=== PATIENT | female | born 1980 | race Caucasian/White ===

== ENCOUNTER → 2017-11-09 16:02 | Outpatient (CLI) | payer OTHER, SELFPAY ==
--- NOTE | 2017-11-09 16:06 | BI_ITS ---
MAMMOGRAPHY - BILATERAL SCREENING REASON FOR EXAM: Female, 37 years old. Routine annual screening examination. PERTINENT HISTORY: Non-contributory. Past history of Hodgkin's lymphoma. TECHNIQUE: Digital bilateral breast addie (3D mammographic acquisition) in the CC and MLO projections. 2-D mediolateral oblique (MLO) and craniocaudad (CC) views of both breasts were obtained. CAD: Full Field Digital Mammography with Computer Added Detection was performed. COMPARISON: Comparison is made with prior examination dated May 22, 2015. FINDINGS: Breast Composition: The breasts are heterogeneously dense, which may obscure small masses. There are no dominant masses or suspicious calcifications. No other significant abnormalities are identified. There has been no significant change since the prior study. BI/SCREENING MAMM (CAD), BILAT IMPRESSION: Stable bilateral screening mammogram. Yearly follow-up mammogram recommended. (A) ASSESSMENT CATEGORY: BIRADS Category 1: Negative. A letter regarding these results will be sent to the patient by the facility within 30 days. Approximately 10% of breast cancers are not detected by mammography. A normal mammogram should not delay biopsy of a clinically suspicious abnormality. [id number] Electronically Signed: Neil Koenig MD at 9:18 EDT Tel [phone], Service support ,
== END ==
PROVIDERS: Visit Provider Obstetrics & Gynecology
DX: Z12.31 Encounter for screening mammogram for malignant neoplasm of breast (principal); Z85.71 Personal history of Hodgkin lymphoma
CPT/HCPCS: 77063; 77067

== ENCOUNTER → 2018-04-25 20:43 | Outpatient (CLI) | payer OTHER, SELFPAY ==
[2018-04-25 09:59] VITALS: BMI 25.0
[2018-04-30 10:03] LABS: HPV APTIMA, High Risk Negative (Negative)
--- OUTSIDE RECORDS SUMMARY | 2018-07-28 10:20 | XMS RPT_ITS ---
:1980 Author Organization OHIP Care Team Providers Name Role Phone Aziza Estrada Attending Unavailable Primay Care Physicia, No Referring Unavailable Aziza Estrada Attending Unavailable Primay Care Physicia, No Primary Care Unavailable Del Rey, Aziza Referring Unavailable Del Rey, Aziza Attending Unavailable Del Rey, Aziza Referring Unavailable Kornhaus, Norma Primary Care Unavailable Natalie, Aziza Attending Unavailable Kornhaus, Norma Referring Unavailable Natalie, Aziza Attending Unavailable Kornhaus, Norma Primary Care Unavailable Marcanthony, Jenelle Attending Unavailable Marcanthony, Jenelle Referring Unavailable Kornhaus, Norma Primary Care Unavailable Marcanthony, Jenelle Attending Unavailable Primay Care Physicia, No Primary Care Unavailable FELICIA MARC (REEL MAN) Referring Unavailable FELICIA MARC (REEL MAN) Attending Unavailable FELICIA MARC (REEL MAN) Referring Unavailable PROBLEMS PROBLEMS DATE TYPE CONDITION / CODE ATTENDING STATUS SOURCE 05/29/2018 Unknown N97.0 - Female Enderanthdanilo, Active [place] infertility [facility] associated with Hospital anovulation / Repository N97.0(ICD-10) 05/23/2018 Unknown N92.6 - Irregular Del Rey, Aziza Active [place] menstruation, [facility] unspecified / Hospital N92.6(ICD-10) Repository 05/23/2018 Unknown N97.9 - Female Natalie, Aziza Active [place] infertility, [facility] unspecified / Hospital N97.9(ICD-10) Repository 04/26/2018 Unknown Z12.4 - Encounter Natalie, Aziza Active [place] for screening for [facility] malignant Hospital neoplasm of Repository cervix / Z12.4(ICD-10) 11/09/2017 Unknown Z12.31 - Marcanthdanilo, Active Kathy Encounter for [facility] mammogram for Repository malignant neoplasm of breast / Z12.31(ICD-10) 08/10/2016 Active Personal history NA Active [facility] Hodgkin [facility] lymphoma / Repository Z85.71(ICD-10) PROCEDURES PROCEDURES No Procedure Records FoundRESULTS RESULTS FOLLICLE STIMULATING Collected: 05/29/2018 Status: F Source: [place] HORMONE 3:43 PM [facility] HOSP[facility] REPOSITORY TYPE CODE TESTS RESULT OUT OF RANGE REFERENCE UNITS LAB L3100.5125 mIU/mL Normal FSH 6.1 Result Comment: NORMAL REFERENCE RANGES FEMALE FOLLICULAR 2.3 - 12.6 mIU/mL MID-CYCLE PEAK 5.2 - 17.5 mIU/mL LUTEAL 1.7 - 12.9 mIU/mL POST-MENOPAUSAL ON MHT 5.9 - 72.8 mIU/mL NOT ON MHT 12.7 - 132.2 mlU/mL MALE 0.7 - 10.8 mIU/mL NEW TEST METHOD AND REFERENCE RANGES SEPTEMBER 28, 2011 Performed By: #### L3100.5125, L3100.5420, L3300.1750 #### [facility] [address] [place], [address] PROLACTIN Collected: 05/29/2018 Status: F Source: [place] 3:43 PM [facility] REPOSITORY TYPE CODE TESTS RESULT OUT OF RANGE REFERENCE UNITS LAB L3100.5420 ng/mL Normal PROLACTIN 8.6 Result Comment: NORMAL REFERENCE RANGES FEMALE NON- 2.2 - 30.3 ng/mL 8.1 - 347.6 ng/mL POST-MENOPAUSAL 0.7 - 31.5 ng/mL MALE 2.5 - 17.4 ng/mL NEW TEST METHOD AND REFERENCE RANGES SEPTEMBER 28, 2011 Performed By: #### L3100.5125, L3100.5420, L3300.1750 #### [facility] [address] [place], [place], [address] ESTRADIOL Collected: 05/29/2018 Status: F Source: [place] 3:43 PM [facility] REPOSITORY TYPE CODE TESTS RESULT OUT OF RANGE REFERENCE UNITS LAB L3300.1750 pg/mL Normal ESTRADIOL 33.3 Result Comment: NORMAL REFERENCE RANGES FEMALE FOLLICULAR 21.4 - 164.8 pg/mL MID-CYCLE PEAK 49.9 - 367.2 pg/mL LUTEAL 40.2 - 259.0 pg/mL POST-MENOPAUSAL ON MHT <11.0 - 462.1 pg/mL NOT ON MHT <11.0 - 58.3 pg/mL MALE <11.0 - 52.5 pg/mL NOTE: [facility] HAS CONFIRMED THE DRUG FULVETRANT (FASLODEX) MAY CAUSE FALSELY ELEVATED ESTRADIOL RESULTS WHEN USING THIS TEST METHOD. IF PATIENT IS TAKING FULVESTRANT AN ALTERNATIVE METHOD SHOULD BE USED TO DETERMINE ESTRADIOL CONCENTRATION. Performed By: #### L3100.5125, L3100.5420, L3300.1750 #### [facility] [address] [place], [address] TRIMMING CUTTER MACHINE OFFICE VISIT Observed: 05/23/2018 Status: F Source: [place] REPORT 10:10 AM [facility] REPOSITORY [facility] [address] [place] [address] OFFICE VISIT Date of Service: 05/23/18 MR#: [id number] Acct: [id number] Name: JAMES JASSO Rep #: [id number] : 1980 Provider: LOVE Estrada Age/Sex: 38/F [place] [facility] [place] Signed Intake Vital Signs05/23/18 Body Mass Index (BMI) 25.0 05/23/18 Height 5 ft 8 in 05/23/18 Weight: 163 lb 05/23/18 Body Mass Index (BMI) 24.7 05/23/18 Blood Pressure 118/70 Intake Visit Reasons: Discuss starting Clomid Spice Cleaner Required: No Is patient in pain?: No Allergies No Known Allergies Allergy (Verified 05/23/18 09:29) Medications Citalopram [Celexa] 20 mg PO DAILY 06/14/16 [History Confirmed 05/23/18] Post menopausal: No Patient : No : No PFSH Social History Smoking Status: Never smoker HPI Discuss starting Clomid: Details: JAMES JASSO is a 38 year old who presents for discussion of possible use of clomid. with her today. Had 21 day progesterone this month and did not show ovulation although she states home OPT was positive. She is now 3 days late for menses, home UPT last pm negative. States menses usually every 28 days. Actively trying to conceive X 10 months. Has 1 year old daughter. She is not anxious to try clomid yet. in family this month so more emotional stress for her right now. Pregancy History Elective abortions Hx Para 0 Spontaneous abortions ROS Const Constitutional: Reports system reviewed and no additional complaints, except as docu GI GI: Denies abdominal pain or change in bowel habits Exam Const General: cooperative, no acute distress Nutritional Appearance: well nourished Orientation: oriented x3 Eyes General: appearance normal, both eyes and all related structures Resp Effort AND Inspection: normal respiratory effort Assessment AND Plan Problems 1. Female infertility, unspecified N97.9 Plan Quant HCG today. IF negative, proceed with day 3 and 21 labs. If positive, start OB care. Continue vitamins Discussed use, benefits, risks and side effects of clomid and may consider 1-2 months. 15 min FTF counseling with patient. Orders Orders: Coding Level of Care Code Off vis,est,level 3 Diagnoses Female infertility, unspecified N97.9 05/23/18 1010 <Electronically signed by Aziza SHEA> Date Aziza Estrada NP-C Cosigner Signature: Date (if applicable) CC: HCG TITER QUANT., Collected: 05/23/2018 Status: F Source: [place] SERUM 9:55 AM [facility] REPOSITORY TYPE CODE TESTS RESULT OUT OF RANGE REFERENCE UNITS LAB L700.8000 <9 non-preg mIU/mL Normal HCG < 1 QUANT. Performed By: #### L700.8000 #### [facility] [address] [place], [place], [address] THYROID STIM HORMONE Collected: 05/11/2018 Status: F Source: [place] (TSH) 2:49 PM [facility] REPOSITORY TYPE CODE TESTS RESULT OUT OF RANGE REFERENCE UNITS LAB L501.9520 0.358-3.74 uIU/mL Normal TSH 1.77 Performed By: #### L501.9520 #### [facility] [address] [place], [address] PROGESTERONE LEVEL Collected: 05/11/2018 Status: F Source: [place] 2:49 PM [facility] REPOSITORY TYPE CODE TESTS RESULT OUT OF REFERENCE UNITS RANGE LAB L509.4001 See Comment ng/mL Progesterone Normal 0.54 Result Comment: Progesterone Reference Table: UNITS Female: Follicular 0.15 - 1.40 ng/mL Luteal 3.34 - 25.56 ng/mL Mid-luteal 4.44 - 28.03 ng/mL Postmenopausal 0.0 - 0.73 ng/mL : 1st Trimester 11.22 - 90.00 ng/mL 2nd Trimester 25.55 - 89.40 ng/mL 3rd Trimester 48.40 -422.50 ng/mL Performed By: #### L509.4001 #### [facility] [address] [place], [address] TRIMMING CUTTER MACHINE OFFICE VISIT Observed: 04/25/2018 Status: F Source: [place] REPORT 10:27 AM [facility] REPOSITORY [facility] [address] [place] [address] OFFICE VISIT Date of Service: 04/25/18 MR#: [id number] Acct: [id number] Name: JAMES JASSO Rep #: [id number] : 1980 Provider: LOVE Estrada Age/Sex: 37/F [place] [facility] [place]: Signed Intake Vital Signs04/25/18 Height 5 ft 8 in 04/25/18 Weight: 165 lb 04/25/18 Body Mass Index (BMI) 25.0 04/25/18 Blood Pressure 124/80 H Intake Visit Reasons: NURSING SERVICES MANAGER annual exam/ Infertility Discussion Spice Cleaner Required: No Is patient in pain?: No Allergies No Known Allergies Allergy (Verified 04/25/18 10:00) Medications Citalopram [Celexa] 20 mg PO DAILY 06/14/16 [History Confirmed 04/25/18] Is last menstrual period known: Yes Last Menstral Period: 04/21/18 Post menopausal: No Patient : No : No PFSH Social History Smoking Status: Never smoker Pregancy History Elective abortions Hx Para 0 Spontaneous abortions HPI NURSING SERVICES MANAGER annual exam/ Infertility Discussion: Details: JAMES JASSO is a 37 year old who presents for annual exam. Last PAP: >3 yr History of abnormal PAP: LEEP 10 yr ago No contraception X 10 months. Positive OPT testing. Menses every 28-30 days, last 5 days. Taking PNV. Female Reproductive History Last Menstral Period: 04/21/18 Questions: Metorrhagia: No, Sexually active: Yes, Dyspareunia: No, PCB: No ROS Const Constitutional: Denies fatigue, weight gain or weight loss Cardio Card: Denies chest pain Resp Resp: Denies cough or shortness of breath with activity GI GI: Denies abdominal pain, constipation, change in stools, vomiting or bloating : Reports as per HPI; denies urinary frequency, pelvic pain, urinary urgency, vaginal discharge, vaginal itching, urinary incontinence or difficulty urinating Exam Const General: cooperative, healthy appearing, no acute distress, well developed Orientation: alert, oriented to person, oriented to place HENMS Head: normal to inspection Neck Neck: normal visual inspection Thyroid: thyroid normal Lymphatic: no lymphadenopathy noted Chest Breast inspection: normal inspection of the breasts, normal inspection of the axillae Breast palpation: normal palpation of the breasts, normal palpation of the axillae, no axillary lymphadenopathy Resp Effort AND Inspection: normal respiratory effort GI Palpation: soft, nontender, no masses Rectal Exam: deferred External Female Exam: normal external appearance, normal appearance of the urethra Urethra: normal appearance of the urethra, normal palpation Speculum Exam - Vagina: normal appearance of the vagina, normal vaginal discharge Speculum Exam - Cervix: normal appearance of the cervix Bimanual Exam- Vagina AND Uterus: normal bimanual exam, uterine size normal, uterine shape normal, uterus non-tender Bimanual Exam- Adnexa, other: normal adnexae, no adnexal masses, adnexae non-tender, pelvic support normal Pelvic Support: normal Neuro General: alert, oriented x3 Psych Affect: normal affect Assessment AND Plan Problems 1. Encounter for gynecological examination with abnormal finding Z01.411 2. Anovulation N97.0 Plan Completed breast and pelvic exam Reviewed diet and exercise Pap thin prep pap with HPV Day 6 of current cycle. Will proceed with day 21 progesterone plus TSH and call results Discussed since has 1 year old daugher and <1 year of no contraception, may monitor ovulation 2-3 months before pursuing futher infertility management RTO 1 year, prn with problems Aziza Estrada REEL MAN Orders Orders: Coding Level of Care Code Off vis,new,prev 18-39yrs Diagnoses Encounter for gynecological examination with abnormal finding Z01.411 Gynecological examination findings: abnormal findings PRESENT Anovulation N97.0 04/25/18 1027 <Electronically signed by Aziza Estrada BOW MAKER CUSTOM-C> Date Aziza Estrada BOW MAKER CUSTOM-C Cosigner Signature: Date (if applicable) CC: PAP IG HPV APTIMA Collected: 04/25/2018 Status: F Source: [place] 16/18,45 10:00 AM [facility] REPOSITORY Order Comment: CYTOLOGY INFORMATION: - CLINICAL INFORMATION: ANNUAL - DATE LMP/MENOPAUSE: N/A - COLLECTION VIAL: Thin Prep Vial - NURSING SERVICES MANAGER SOURCE: CERVICAL - COLLECTION TECHNIQUE: BRUSH/SPATULA Specimen Comment: [id number] Specimen Comment: Source.............Cervix Specimen Comment: No. of containers..01 ThinPrep Vial TYPE CODE TESTS RESULT OUT OF REFERENCE UNITS RANGE LAB L7400.0800 . High DIAGN Comment Result Comment: EPITHELIAL CELL ABNORMALITY. ATYPICAL SQUAMOUS CELLS OF UNDETERMINED SIGNIFICANCE. LAB L7400.0900 . Normal ADEQ Comment Result Comment: Satisfactory for evaluation. Endocervical and/or squamous metaplastic cells (endocervical component) are present. LAB L7400.1400 . Normal PERFORM Comment Result Comment: Jenny Ambrosio, Horticulture Professor (ASCP) LAB L7400.1700 . Normal SIGN Comment Result Comment: Araceli Alegria MD, Pathologist LAB L7400.1720 . Normal Path prov. Comment ICD9 Result Comment: R87.610 LAB L7400.2575 . Normal TEST METHOD Comment Result Comment: This liquid based ThinPrep(R) pap test was screened with the use of an image guided system. LAB L7400.2600 . Normal . COMM LAB L7400.2700 . Normal PAPSMR Comment Result Comment: The Pap smear is a screening test designed to aid in the detection of premalignant and malignant conditions of the uterine cervix. It is not a diagnostic procedure and should not be used as the sole means of detecting cervical cancer. Both false-positive and false-negative reports do occur. LAB L7400.2760 Negative Normal HPV APTIMA, Negative HR Result Comment: This test detects fourteen high-risk HPV types (16/18/31/33/35/39/45/ 51/52/56/58/59/66/68) without differentiation. Performed at: WB - [facility] [address] [id number] [place]: Millicent Gonzalez MD, Phone: [phone] Performed at: =G - [facility] [address] [place] [id number] [place]: Millicent Gonzalez MD, Phone: [phone] Performed By: #### L7400.0280 #### [facility] (refer to report for specific site) refer to report for address and phone number SCREENING MAMM (CAD), Observed: 11/09/2017 Status: F Source: [place] BIL[place] 4:06 PM [facility] REPOSITORY [facility] Imaging Services [address] [place] [address] SCREENING MAMM (CAD), BILAT MR#: [id number] Acct: [id number] Name: JAMES JASSO Rep #: [id number] : 1980 F 37 From: Neil Koenig MD PCP: Care Physician, No Primary Status: [facility] Study: SCREENING MAMM (CAD), BILAT Date of Exam: 11/09/17 Exam# [id number] Ordering Dr: Jenelle Guillaume MD MAMMOGRAPHY - BILATERAL SCREENING REASON FOR EXAM: Female, 37 years old. Routine annual screening examination. PERTINENT HISTORY: Non-contributory. Past history of Hodgkin's lymphoma. TECHNIQUE: Digital bilateral breast addie (3D mammographic acquisition) in the CC and MLO projections. 2-D mediolateral oblique (MLO) and craniocaudad (CC) views of both breasts were obtained. CAD: Full Field Digital Mammography with Computer Added Detection was performed. COMPARISON: Comparison is made with prior examination dated May 22, 2015. FINDINGS: Breast Composition: The breasts are heterogeneously dense, which may obscure small masses. There are no dominant masses or suspicious calcifications. No other significant abnormalities are identified. There has been no significant change since the prior study. BI/SCREENING MAMM (CAD), BILAT IMPRESSION: Stable bilateral screening mammogram. Yearly follow-up mammogram recommended. (A) ASSESSMENT CATEGORY: BIRADS Category 1: Negative. A letter regarding these results will be sent to the patient by the facility within 30 days. Approximately 10% of breast cancers are not detected by mammography. A normal mammogram should not delay biopsy of a clinically suspicious abnormality. [id number] Electronically Signed: Neil Koenig MD at 9:18 EDT Tel [phone], Service support , CC: No Primary Care Physician; Jenelle Guillaume MD Pantograph Ii Engraver: Signed PROGRESS Observed: 10/29/2017 Status: COMPLETED Source: [place] 9:19 AM [facility] [place] REPOSITORY O ID: [id number] Author: Felicia Marc Service: (none) Author Type: Nurse Practitioner Type: Progress Notes Filed: 10/29/2017 9:36 AM Note Text: Chief Complaint Patient presents with: Established Patient HPI: James Jasso is a 37 year old female who presents here today for follow up lymphoma. Per Dr. Yu's previous note: H/o diagnosed with nodular sclerosing stage IIA Hodgkin lymphoma in 2005. She was treated with 4 cycles of ABVD followed by involved field radiation to a total dose of 30 cGy. Most recent follow up PET negative. ? No complaints. ? Appetite:fine Energy level:I'd say fine-I work and have the normal tiredness by the end of the week. Denies fevers. Resp:denies cough or sob Cardiac:denies chest pain/palpitations GI:denies abd pain, n/v, moving bowels regularly :denies dysuria/hematuria Extrem:denies pain Neuro:denies symptoms of neuropathy Skin:denies rashes/lesions Heme:denies bleeding ? The ROS is otherwise negative. Past medical history, appointments, medications, allergies reviewed. No changes. EXAM: BP 113/68 Pulse 70 Temp 37.1 ?C (98.7 ?F) (Oral) Wt 73.7 kg (162 lb 8 oz) BMI 25.45 kg/m? APPEARANCE Well appearing, alert, in no acute distress, well-hydrated, well nourished. HEART RRR with normal S1 and S2, no murmurs LUNG clear to auscultation LYMPH NODES No cervical lymphadenopathy, No supraclavicular lymphadenopathy and No axillary lymphadenopathy. ABDOMEN bowel sounds normoactive, no bruits, soft, non-tender, non-distended, without organomegaly or palpable masses EXTREMITIES No edema NEURO Awake, alert and oriented x 3, Normal gait and No involuntary motions. SKIN Skin color, texture, turgor normal, no suspicious rashes or lesions LABS: Component Latest Ref Rng AND Units 09/22/2017 WBC, Kathy 3.70 - 11.00 k/uL 8.85 RBC, [place] 3.90 - 5.20 m/uL 4.66 Hemoglobin, Kathy 11.5 - 15.5 g/dL 13.4 Hematocrit, Kathy 36.0 - 46.0 % 41.7 MCV, [place] 80.0 - 100.0 fL 89.5 MCH, [place] 26.0 - 34.0 pg 28.8 MCHC, [place] 30.5 - 36.0 g/dL 32.1 RDW, Kathy 11.5 - 15.0 % 13.8 Platelet Cnt, [place] 150 - 400 k/uL 231 MPV, Kathy 9.0 - 12.7 fL 10.0 Absol Gran Count 1.45 - 7.50 k/uL 5.98 Component Latest Ref Rng AND Units 09/22/2017 Protein, Total 6.3 - 8.0 g/dL 7.8 Albumin 3.9 - 4.9 g/dL 4.9 Calcium 8.5 - 10.2 mg/dL 9.7 Bilirubin, Total 0.2 - 1.3 mg/dL 0.6 Alkaline Phosphatase 32 - 117 U/L 53 AST 13 - 35 U/L 18 Glucose 74 - 99 mg/dL 91 BUN 7 - 21 mg/dL 12 Creatinine 0.58 - 0.96 mg/dL 0.65 Sodium 136 - 144 mmol/L 140 Potassium 3.7 - 5.1 mmol/L 3.7 Chloride 97 - 105 mmol/L 99 CO2 22 - 30 mmol/L 26 Anion Gap 9 - 18 mmol/L 15 ALT 7 - 38 U/L 11 eGFR- >60 eGFR-All Other Races . >60 Component Latest Ref Rng AND Units 08/10/2016 09/22/2017 TSH 0.400 - 5.500 uU/mL 1.220 2.800 ASSESSMENT/PLAN: 1. History of Hodgkin's lymphoma - ICD9: V10.72, ICD10: Z85.71 - No concerning findings on exam. - Pt. 12 years out from dx. - Pt. did not have her f/u dx mamm d/t being . - B/l dx mamm-having done today-ordered by NURSING SERVICES MANAGER. - Reviewed labs with pt. - Follow up in one year with CBC/CMP/TSH. - Pt. aware to call office with any questions/concerns. The patient indicates understanding of these issues and agrees with the plan. Felicia Marc APRN.CNP CNOVSP Observed: 10/29/2017 Status: COMPLETED Source: [place] 9:00 AM [facility] REPOSITORY Visit (SP) Office (JEFFREY) JAMES JASSO ([id number]) 1980 F Date Time Provider Department 10/29/17 9:00 AM FELICIA MARC (MIC) JEFFREY During your visit today, we recorded the following information about you: Temperature Pulse Blood pressure Weight 98.7 degrees 70/minute 113/68 73.7 kg Angela Chirinos LPN 10/29/2017 9:24 AM Signed Est patient. One year office visit. Discuss recent labs. Angela Marc APRN.CNP 10/29/2017 9:36 AM Signed Chief Complaint Patient presents with: Established Patient HPI: James Jasso is a 37 year old female who presents here today for follow up lymphoma. Per Dr. Yu's previous note: H/o diagnosed with nodular sclerosing stage IIA Hodgkin lymphoma in 2005. She was treated with 4 cycles of ABVD followed by involved field radiation to a total dose of 30 cGy. Most recent follow up PET negative. ? No complaints. ? Appetite:fine Energy level:I'd say fine-I work and have the normal tiredness by the end of the week. Denies fevers. Resp:denies cough or sob Cardiac:denies chest pain/palpitations GI:denies abd pain, n/v, moving bowels regularly :denies dysuria/hematuria Extrem:denies pain Neuro:denies symptoms of neuropathy Skin:denies rashes/lesions Heme:denies bleeding ? The ROS is otherwise negative. Past medical history, appointments, medications, allergies reviewed. No changes. EXAM: BP 113/68 Pulse 70 Temp 37.1 ?C (98.7 ?F) (Oral) Wt 73.7 kg (162 lb 8 oz) BMI 25.45 kg/m? APPEARANCE Well appearing, alert, in no acute distress, well- hydrated, well nourished. HEART RRR with normal S1 and S2, no murmurs LUNG clear to auscultation LYMPH NODES No cervical lymphadenopathy, No supraclavicular lymphadenopathy and No axillary lymphadenopathy. ABDOMEN bowel sounds normoactive, no bruits, soft, non-tender, non-distended, without organomegaly or palpable masses EXTREMITIES No edema NEURO Awake, alert and oriented x 3, Normal gait and No involuntary motions. SKIN Skin color, texture, turgor normal, no suspicious rashes or lesions LABS: Component Latest Ref Rng AND Units 09/22/2017 WBC, Kathy 3.70 - 11.00 k/uL 8.85 RBC, Kathy 3.90 - 5.20 m/uL 4.66 Hemoglobin, Kathy 11.5 - 15.5 g/dL 13.4 Hematocrit, Kathy 36.0 - 46.0 % 41.7 MCV, [place] 80.0 - 100.0 fL 89.5 MCH, Kathy 26.0 - 34.0 pg 28.8 MCHC, Kathy 30.5 - 36.0 g/dL 32.1 RDW, Kathy 11.5 - 15.0 % 13.8 Platelet Cnt, Kathy 150 - 400 k/uL 231 MPV, Kathy 9.0 - 12.7 fL 10.0 Absol Gran Count 1.45 - 7.50 k/uL 5.98 Component Latest Ref Rng AND Units 09/22/2017 Protein, Total 6.3 - 8.0 g/dL 7.8 Albumin 3.9 - 4.9 g/dL 4.9 Calcium 8.5 - 10.2 mg/dL 9.7 Bilirubin, Total 0.2 - 1.3 mg/dL 0.6 Alkaline Phosphatase 32 - 117 U/L 53 AST 13 - 35 U/L 18 Glucose 74 - 99 mg/dL 91 BUN 7 - 21 mg/dL 12 Creatinine 0.58 - 0.96 mg/dL 0.65 Sodium 136 - 144 mmol/L 140 Potassium 3.7 - 5.1 mmol/L 3.7 Chloride 97 - 105 mmol/L 99 CO2 22 - 30 mmol/L 26 Anion Gap 9 - 18 mmol/L 15 ALT 7 - 38 U/L 11 eGFR- >60 eGFR-All Other Races . >60 Component Latest Ref Rng AND Units 08/10/2016 09/22/2017 TSH 0.400 - 5.500 uU/mL 1.220 2.800 ASSESSMENT/PLAN: 1. History of Hodgkin's lymphoma - ICD9: V10.72, ICD10: Z85.71 - No concerning findings on exam. - Pt. 12 years out from dx. - Pt. did not have her f/u dx mamm d/t being . - B/l dx mamm-having done today-ordered by NURSING SERVICES MANAGER. - Reviewed labs with pt. - Follow up in one year with CBC/CMP/TSH. - Pt. aware to call office with any questions/concerns. The patient indicates understanding of these issues and agrees with the plan. Felicia Marc APRN.REEL MAN Referring Provider: FELICIA MARC ([facility]) [[id number]] Allergies As of Date: 10/29/2017 (No Known Allergies) Date Reviewed: 10/29/2017 Reviewed by: Felicia ([facility]) [place] - Fully Assessed Reason for Visit: Established Patient [175] Primary Visit Diagnosis:History of Hodgkin's lymphoma [Z85.71] Follow-up and Disposition History Recorded Prescriptions as of 10/29/2017 Sig: PROMETHAZINE 25 MG TABLET Take 25 mg by mouth as needed. CITALOPRAM 20 MG TABLET Take 1 tablet by mouth once d* VITAMIN,CALCIUM,MINE* Take 1 tablet by mouth once d* Problem List As Of Date 10/29/2017 Noted Resolved History of hodgkin's lymphoma [Z85.71] INVALID FOR*04/23/2016 More... More... More... Patient requested diagnostic testing [Z01.89] INVALID FOR*03/02/2016 More... More... More... History of hodgkin's lymphoma [Z85.71] INVALID FOR* Visit Notes: >> Angela Candis MORELOS WedOct 29, 2017 9:17 AM Status: Signed Est patient. One year office visit. Discuss recent labs. Angela Candis MROELOS Encounter Status:Closed by FELICIA MARC REEL MAN on 10/29/17 KATHY ABS GR + CBC Collected: 09/22/2017 Status: F Source: [place] 12:22 PM [facility] REPOSITORY TYPE CODE TESTS RESULT OUT OF REFERENCE UNITS RANGE LAB WWBC 3.70-11.00 k/uL [place] WBC 8.85 LAB WRBC 3.90-5.20 m/uL [place] RBC 4.66 LAB WHGB 11.5-15.5 g/dL [place] Hemoglobin 13.4 LAB WHCT 36.0-46.0 % Kathy Hematocrit 41.7 LAB WMCV 80.0-100.0 fL Kathy MCV 89.5 LAB WMCH 26.0-34.0 pg [place] MCH 28.8 LAB WMCHC 30.5-36.0 g/dL [place] MCHC 32.1 LAB WRDW 11.5-15.0 % Kathy RDW 13.8 LAB WPLT 150-400 k/uL [place] Platelet Cnt 231 LAB WMPV 9.0-12.7 fL [place] MPV 10.0 Result Comment: Test performed at: [facility], [address] [place] [address]. LAB ABGRAN 1.45-7.50 k/uL Absol Gran 5.98 Count COMP METABOLIC PANEL Collected: 09/22/2017 Status: F Source: EFFIE 12:22 PM [facility] REPOSITORY TYPE CODE TESTS RESULT OUT OF REFERENCE UNITS RANGE LAB TP 6.3-8.0 g/dL Protein, Total 7.8 LAB ALB 3.9-4.9 g/dL Albumin 4.9 LAB CA 8.5-10.2 mg/dL Calcium, Total 9.7 LAB TBIL 0.2-1.3 mg/dL Bilirubin, Total 0.6 LAB ALKP 32-117 U/L Alkaline Phosphatase 53 LAB AST 13-35 U/L AST 18 LAB GLU 74-99 mg/dL Glucose 91 Result Comment: The [place] Diabetes Association (ADA) provides guidance for cutoff values for fasting glucose and random glucose. The ADA defines fasting as no caloric intake for at least 8 hours. Fas ting plasma glucose results between 100 to 125 mg/dL indicate increased risk for diabetes (prediabetes). Fasting plasma glucose results greater than or equal to 126 mg/dL meet the criteria for diagnosis of diabetes. In the absence of unequivocal hyperglycemia, results should be confirmed by repeat testing. In a patient with classic symptoms of hyperglycemia or hyperglycemic crisis, random plasma glucose results greater than or equal to 200 mg/dL meet the criteria for diagnosis of diabetes. Reference: Standards of Medical Care in Diabetes 2016, [place] Diabetes Association. Diabetes Care. 2016.39(Suppl 1). LAB BUN 7-21 mg/dL BUN 12 LAB CRET 0.58-0.96 mg/dL Creatinine 0.65 LAB NA 136-144 mmol/L Sodium 140 LAB K 3.7-5.1 mmol/L Potassium 3.7 LAB CL 97-105 mmol/L Chloride 99 LAB CO2 22-30 mmol/L CO2 26 LAB AGAP 9-18 mmol/L Anion Gap 15 LAB ALT 7-38 U/L ALT 11 LAB GFRAA eGFR- Amer. >60 LAB GFRNAA . eGFR-All Other Races >60 Result Comment: eGFR (Estimated GFR) Units of measure: mL/min/1.73 meters squared eGFR is derived from the reexpressed MDRD Study equation using the following parameters: serum creatinine, age, gender and race. The creatinine assay has been calibrated to be traceable to IDMS. An eGFR <60 mL/min/1.73m2 for >3 months is consistent with chronic kidney disease. Refer to KDOQI guidelines for clinical interpretation. In patients with unstable renal function, e.g. those with acute kidney injury, the eGFR may not accurately reflect actual GFR. Performed By: #### CMP, TSH #### [facility] [address] [address] TSH Collected: 09/22/2017 Status: F Source: EFFIE 12:22 PM [facility] REPOSITORY TYPE CODE TESTS RESULT OUT OF RANGE REFERENCE UNITS LAB TSH 0.400-5.500 uU/mL TSH 2.800 Result Comment: If the patient is , TSH reference range varies by gestational period: First Trimester 0.100-2.500 uU/mL Second Trimester 0.200-3.000 uU/mL Third Trimester 0.300-3.000 uU/mL References: 1. Marcos, Itz M, Rich EK, et al. Management of Thyroid Dysfunction during and : An Endocrine Society Clinical Practice Guideline. J Clin Endocrinol Metab, 2012:97:5299-4136. 2. Jorge CHILD. Overview of thyroid disease in . UpToDate. 2016. Accessed on October 25, 2015. Performed By: #### CMP, TSH #### [facility] [address] [address] ALLERGIES ALLERGIES DATE TYPE / CODE NAME / CODE REACTION SEVERITY SOURCE 05/23/2018 Drug No Known Unknown [facility] Allergy/416 Allergies/E58977 [facility] 623332(SNOM 0388(RXNORM) Repository ED CT) Drug NO KNOWN [facility] Class/77113 ALLERGIES [facility] 1003(SNOMED Repository CT) ENCOUNTERS ENCOUNTERS ADMIT/DISCHARGE ACCOUNT ADMITTING ENCOUNTER LOCATION SOURCE NUMBER CLASS 05/29/2018 [id number] [facility] ing:LAB Repository 05/23/2018 [id number] Ambulatory [facility] ing:PAVLAB Repository 05/23/2018/05/23/19 [id number] Ambulatory BMSBuilding:B [place] [facility] Repository 05/11/2018 [id number] Ambulatory [facility] ing:LAB Repository 04/25/2018 [id number] Ambulatory [facility] ing:LABSPEC Repository 04/25/2018/04/25/20 [id number] Ambulatory BMSBuilding:B [place] 18 [facility] Repository 11/09/2017 [id number] [facility] ing:OPBI Repository 10/29/2017/11/02/19 [id number] Ambulatory [address] Repository 09/22/2017/09/24/19 [id number] Ambulatory [address] Repository PAYERS PAYERS ENCOUNTER GUARANTOR PAYER SUBSCRIBER SOURCE 05/29/2018 JAMES R Primary NOT GIVENUNK [place] [id number] [place] Insurance:SELF PAY [address] [address]Bgq: Number: Effective Repository Date:2018-05-29 () 05/23/2018 JAMES R Primary MIRACLE R [place] [id number] Insurance:AULTCAREPol MULLETDOB: [facility] PRIVATE icy Number: [id number] [id number] [place]ository [place] [address]Idr: e Date:2988-47-25KA [address] [place] [address] () [phone]: 05/23/2018 Secondary NOT GIVENUNK [place] Insurance:SELF PAY [facility] Number: Effective Repository Date:2018-05-23 05/23/2018 JAMES R Primary MIRACLE R [place] [id number] [place] Insurance:AULTCAREPol MULLETDOB: [address] ic Number: [id number] [facility] [address]Ssi: [id number] Repository e Date:1657-86-07SJ () [address] [place] [phone]: 05/23/2018 Secondary NOT GIVENUNK [place] Insurance:SELF PAY [facility] Number: Effective Repository Date:2018-05-23 05/11/2018 JAMES R Primary MIRACLE R [place] [id number] [place] Insurance:AULTCAREPol MULLETDOB: [address] icy Number: [id number] Fe Indian Hospital [address]Iao: [id number] Repository e Date:8426-21-44UA () [address] [place] [phone]: 05/11/2018 Secondary NOT GIVENUNK [place] Insurance:SELF PAY [facility] Number: Effective Repository Date:2018-05-11 04/25/2018 JAMES R Primary MIRACLE R [place] [id number] [place] Insurance:AULTCAREPol MULLETDOB: [address], icy Number: [id number] Fe Indian Hospital [address]Brz: [id number] Repository e Date:9149-55-62OD () [address] [place] [address]PJ: 04/25/2018 Secondary NOT GIVENUNK [place] Insurance:SELF PAY [facility] Number: Effective Repository Date:2018-04-25 04/25/2018 JAMES Primary MIRACLE R Kathy [id number] Insurance:AULTCAREPol MULLETDOB: [address] icy Number: [id number], [id number] [place] [address]Wtv: e Date:4375-45-39AT [address] [place] [address] () [phone]: 04/25/2018 Secondary NOT GIVENUNK [place] Insurance:SELF PAY [facility] Number: Effective Repository Date:2018-02-15 11/09/2017 James Primary MIRACLE R [place] [id number] Insurance:AULTCAREPol MULLETDOB: [address] icy Number: [id number], [id number] [place]ository [place] [address]Uoa: e Date:0219-01-42GQ [address] [place] [address] () [phone]: 11/09/2017 Secondary NOT GIVENUNK [place] Insurance:SELF PAY [facility] Number: Effective Repository Date:2017-09-23
== END ==
PROVIDERS: Referring Provider Nurse Practitioner Women's Health; Visit Provider Nurse Practitioner Women's Health
DX: Z12.4 Encounter for screening for malignant neoplasm of cervix (principal)
CPT/HCPCS: 87624; 88175; G0145

== ENCOUNTER → 2018-05-11 14:44 | Outpatient (CLI) | payer OTHER, SELFPAY ==
[2018-04-25 09:59] VITALS: BMI 25.0
[2018-05-11 15:39] LABS: Progesterone Level 0.54 ng/mL (See Comment); Thyroid Stim Hormone (TSH) 1.77 uIU/mL (0.358-3.74)
== END ==
PROVIDERS: Family Provider Family Medicine; PCP Family Medicine; Referring Provider Nurse Practitioner Women's Health; Visit Provider Nurse Practitioner Women's Health
DX: N97.0 Female infertility associated with anovulation (principal)
CPT/HCPCS: 36415; 84144; 84443

== ENCOUNTER → 2018-05-23 09:48 | Outpatient (CLI) | payer OTHER, SELFPAY ==
[2018-05-23 09:30] VITALS: BMI 25.0
[2018-05-23 10:38] LABS: hCG Titer Quant., Serum < 1 mIU/mL (<9 non-preg)
== END ==
PROVIDERS: Family Provider Family Medicine; PCP Family Medicine; Visit Provider Nurse Practitioner Women's Health
DX: N92.6 Irregular menstruation, unspecified (principal)
CPT/HCPCS: 36415; 84702

== ENCOUNTER → 2018-05-29 15:33 | Outpatient (CLI) | payer SELFPAY ==
[2018-05-23 09:30] VITALS: BMI 25.0
[2018-05-29 16:11] LABS: Estradiol 33.3 pg/mL; Follicle Stimulating Hormone 6.1 mIU/mL; Prolactin 8.6 ng/mL
--- OUTSIDE RECORDS SUMMARY | 2018-08-01 12:00 | XMS RPT_ITS ---
:1980 Author Organization OHIP Care Team Providers Name Role Phone FELICIA MARC (CYBER POLICY AND STRATEGY PLANNER) Referring Unavailable FELICIA MARC (MIC) Attending Unavailable FELICIA MARC (MIC) Referring Unavailable Aziza Estrada Attending Unavailable Primay Care Physicia, No Referring Unavailable [place], Aziza Attending Unavailable Primay Care Physicia, No Primary Care Unavailable [place], Aziza Referring Unavailable [place], Aziza Attending Unavailable Natalie, Aziza Referring Unavailable Kornhaus, Norma Primary Care Unavailable Natalie, Aziza Attending Unavailable Kornhaus, Norma Referring Unavailable [place], Aziza Attending Unavailable Kornhaus, Norma Primary Care Unavailable Marcanthony, Jenelle Attending Unavailable Marcanthony, Jenelle Referring Unavailable Kornhaus, Norma Primary Care Unavailable Marcanthony, Jenelle Attending Unavailable Primay Care Physicia, No Primary Care Unavailable PROBLEMS PROBLEMS DATE TYPE CONDITION / CODE ATTENDING STATUS SOURCE 05/29/2018 Unknown 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.0 - 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, Active Kathy infertility [facility] associated with Hospital anovulation / Repository N97.0(ICD-10) 05/23/2018 Unknown N92.6 - Irregular [place], Aziza Active [place] menstruation, [facility] unspecified / Hospital N92.6(ICD-10) Repository 05/23/2018 Unknown N97.9 - Female Natalie, Aziza Active Kathy infertility, Community unspecified / Hospital N97.9(ICD-10) Repository 04/26/2018 Unknown Z12.4 - Encounter Natalie, Aziza Active [place] for [facility] 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 lymphoma / Repository Z85.71(ICD-10) PROCEDURES PROCEDURES No Procedure Records FoundRESULTS RESULTS FOLLICLE STIMULATING Collected: 05/29/2018 Status: F Source: KATHY HORMONE 3:43 PM [facility] REPOSITORY TYPE CODE TESTS RESULT [...] Performed By: #### L3100.5125, L3100.5420, L3300.1750 #### [facility] [address] [place], [address] PROLACTIN Collected: 05/29/2018 Status: F Source: L[place] 3:43 PM [facility] REPOSITORY TYPE CODE TESTS RESULT OUT OF RANGE REFERENCE UNITS LAB L3100.5420 ng/mL Normal PROLACTIN 8.6 Result Comment: NORMAL REFERENCE RANGES FEMALE NON- 2.2 - 30.3 ng/mL 8.1 - 347.6 ng/mL POST-MENOPAUSAL 0.7 - 31.5 ng/mL MALE 2.5 - 17.4 ng/mL NEW TEST METHOD AND REFERENCE RANGES SEPTEMBER 28, 2011 Performed By: #### L3100.5125, L3100.5420, L3300.1750 #### [facility] [address] [place], [place], [address] ESTRADIOL Collected: 05/29/2018 Status: F Source: K[place] 3:43 PM [facility] REPOSITORY TYPE CODE TESTS RESULT OUT OF [...] Performed By: #### L3100.5125, L3100.5420, L3300.1750 #### [facility] [address] [place], [address] CISCO ENGINEER OFFICE VISIT Observed: 05/23/2018 Status: F Source: LATT[place] REPORT 10:10 AM [facility] REPOSITORY [facility] [address] [place] [address] OFFICE VISIT Date of Service: 05/23/18 MR#: [id number] Acct: [id number] Name: JAMES JASSO Rep #: [id number] : 1980 Provider: LOVE Estrada Age/Sex: 38/F Location: [facility] Status: Signed Intake Vital Signs05/23/18 Body Mass Index (BMI) 25.0 05/23/18 Height 5 ft 8 in 05/23/18 Weight: 163 lb 05/23/18 Body Mass Index (BMI) 24.7 05/23/18 Blood Pressure 118/70 Intake Visit Reasons: Discuss starting Clomid Lehr Operator Required: No Is patient in pain?: No [...] TITER QUANT., Collected: 05/23/2018 Status: F Source: LATT[place] SERUM 9:55 AM [facility] REPOSITORY TYPE CODE TESTS RESULT OUT OF RANGE REFERENCE UNITS LAB L700.8000 <9 non-preg mIU/mL Normal HCG < 1 QUANT. Performed By: #### L700.8000 #### [facility] [address] [facility] [place], [place], [address] THYROID STIM HORMONE Collected: 05/11/2018 Status: F Source: KATHY (TSH) 2:49 PM [facility] REPOSITORY TYPE CODE TESTS RESULT OUT OF RANGE REFERENCE UNITS LAB L501.9520 0.358-3.74 uIU/mL Normal TSH 1.77 Performed By: #### L501.9520 #### [facility] [address] [facility] [place], [address] PROGESTERONE LEVEL Collected: 05/11/2018 Status: F Source: K[place] 2:49 PM [facility] REPOSITORY TYPE CODE TESTS RESULT OUT OF [...] -422.50 ng/mL Performed By: #### L509.4001 #### [facility] [address] [place], [address] CISCO ENGINEER OFFICE VISIT Observed: 04/25/2018 Status: F Source: LATT[place] REPORT 10:27 AM [facility] REPOSITORY [facility] [address] [place] [address] OFFICE VISIT Date of Service: 04/25/18 MR#: [id number] Acct: [id number] Name: JAMES JASSO Rep #: [id number] : 1980 Provider: LOVE Estrada Age/Sex: 37/F Location: [facility] Status: Signed Intake Vital Signs04/25/18 Height 5 ft 8 in 04/25/18 Weight: 165 lb 04/25/18 Body Mass Index (BMI) 25.0 04/25/18 Blood Pressure 124/80 H Intake Visit Reasons: SURVEYOR CHAIN HELPER annual exam/ Infertility Discussion Lehr Operator Required: No Is patient in pain?: No Allergies No Known Allergies Allergy (Verified 04/25/18 10:00) Medications Citalopram [Celexa] 20 mg PO DAILY 06/14/16 [History Confirmed 04/25/18] Is last menstrual period known: Yes Last Menstral Period: 04/21/18 Post menopausal: No Patient : No : No PFSH Social History Smoking Status: Never smoker Pregancy History Elective abortions Hx Para 0 Spontaneous abortions HPI SURVEYOR CHAIN HELPER annual exam/ Infertility Discussion: Details: JAMES JASSO [...] alert, oriented to person, oriented to place HENNH Head: normal to inspection Neck Neck: normal [...] 1 year, prn with problems Aziza Estrada CYBER POLICY AND STRATEGY PLANNER Orders Orders: Coding Level of Care Code Off vis,new,prev 18-39yrs Diagnoses Encounter for gynecological examination with abnormal finding Z01.411 Gynecological examination findings: abnormal findings PRESENT Anovulation N97.0 04/25/18 1027 <Electronically signed by Aziza Estrada SENIOR TECHNICAL TRAINER-C> Date Aziza Estrada SENIOR TECHNICAL TRAINER-C Cosigner Signature: Date (if applicable) CC: PAP IG HPV APTIMA Collected: 04/25/2018 Status: F Source: KATHY 16/18,45 10:00 AM [facility] REPOSITORY Order Comment: CYTOLOGY INFORMATION: - CLINICAL INFORMATION: ANNUAL - DATE LMP/MENOPAUSE: N/A - COLLECTION VIAL: Thin Prep Vial - SURVEYOR CHAIN HELPER SOURCE: CERVICAL - COLLECTION TECHNIQUE: BRUSH/SPATULA Specimen Comment: [id number] Specimen Comment: Source.............Cervix Specimen Comment: No. of [...] Normal PERFORM Comment Result Comment: Jenny Ambrosio, Automotive Painter Helper (ASCP) LAB L7400.1700 . Normal SIGN Comment [...] without differentiation. Performed at: WB - [facility] [address] [id number] Slitter Processed Film: Millicent Gonzalez MD, Phone: [phone] Performed at: =G - [facility] [address] [place] [address] Slitter Processed Film: Millicent Gonzalez MD, Phone: [phone] Performed By: #### L7400.0280 #### [facility] (refer to report for specific site) refer to report for address and phone number SCREENING MAMM (CAD), Observed: 11/09/2017 Status: F Source: LATTIMORE BILAT 4:06 PM [facility] REPOSITORY [facility] Imaging Services [address] [place] [address] SCREENING MAMM (CAD), BILAT MR#: [id number] Acct: [id number] Name: JAMES JASSO Rep #: [id number] : 1980 F 37 From: Neil Koenig MD PCP: Care Physician, No Primary Status: [facility] Study: SCREENING MAMM (CAD), BILAT Date of Exam: 11/09/17 Exam# [id number] Ordering Dr: Jenelle Guillaume MD MAMMOGRAPHY - [...] delay biopsy of a clinically suspicious abnormality. AZ3232 Electronically Signed: Neil Koenig MD at 9:18 EDT Tel [phone], Service support , CC: No Primary Care Physician; Jenelle Guillaume MD Pay Station Collector: Signed PROGRESS Observed: 10/29/2017 Status: COMPLETED Source: NAVARRE 9:19 AM [facility] REPOSITORY O ID: [id number] Author: Felicia Marc Service: (none) Author Type: [...] [place] 3.70 - 11.00 k/uL 8.85 RBC, [place] 3.90 - 5.20 m/uL 4.66 Hemoglobin, [place] 11.5 - 15.5 g/dL 13.4 Hematocrit, Kathy 36.0 - 46.0 % 41.7 MCV, [place] 80.0 - 100.0 fL 89.5 MCH, [place] 26.0 - 34.0 pg 28.8 MCHC, [place] 30.5 - 36.0 g/dL 32.1 RDW, Kathy 11.5 - 15.0 % 13.8 Platelet Cnt, [place] 150 - 400 k/uL 231 MPV, Kathy [...] - B/l dx mamm-having done today-ordered by SURVEYOR CHAIN HELPER. - Reviewed labs with pt. - Follow up in one year with CBC/CMP/TSH. - Pt. aware to call office with any questions/concerns. The patient indicates understanding of these issues and agrees with the plan. Felicia Marc APRN.CNP CNOVSP Observed: 10/29/2017 Status: COMPLETED Source: NAVARRE 9:00 AM [facility] REPOSITORY Visit (SP) Office (JEFFREY) JAMES JASSO ([id number]) 1980 F Date Time Provider Department 10/29/17 [...] [place] 36.0 - 46.0 % 41.7 MCV, [place] 80.0 - 100.0 fL 89.5 MCH, Kathy [...] - B/l dx mamm-having done today-ordered by SURVEYOR CHAIN HELPER. - Reviewed labs with pt. - Follow up in one year with CBC/CMP/TSH. - Pt. aware to call office with any questions/concerns. The patient indicates understanding of these issues and agrees with the plan. Felicia Marc APRN.CYBER POLICY AND STRATEGY PLANNER Referring Provider: FELICIA MARC ([facility]) [[id number]] Allergies As of Date: 10/29/2017 (No Known Allergies) Date Reviewed: 10/29/2017 Reviewed by: Felicia ([facility]) Monico - Fully Assessed Reason for Visit: [...] office visit. Discuss recent labs. Angela Candis MORELOS Encounter Status:Closed by FELICIA MARC CYBER POLICY AND STRATEGY PLANNER on 10/29/17 K[place]Y ABS GR + CBC Collected: 09/22/2017 Status: F Source: NAVARRE 12:22 PM [facility] REPOSITORY TYPE CODE TESTS RESULT OUT OF REFERENCE UNITS RANGE LAB WWBC 3.70-11.00 k/uL Kathy WBC 8.85 LAB WRBC 3.90-5.20 m/uL [place] RBC 4.66 LAB WHGB 11.5-15.5 g/dL Kathy Hemoglobin 13.4 LAB WHCT 36.0-46.0 % Kathy Hematocrit 41.7 LAB WMCV 80.0-100.0 fL Kathy MCV 89.5 LAB WMCH 26.0-34.0 pg [place] MCH 28.8 LAB WMCHC 30.5-36.0 g/dL Kathy MCHC 32.1 LAB WRDW 11.5-15.0 % Kathy RDW 13.8 LAB WPLT 150-400 k/uL Kathy Platelet Cnt 231 LAB WMPV 9.0-12.7 fL Kathy MPV 10.0 Result Comment: Test performed at: [facility], [address] [place] [address]. LAB ABGRAN 1.45-7.50 k/uL Absol Gran 5.98 Count COMP METABOLIC PANEL Collected: 09/22/2017 Status: F Source: NAVARRE 12:22 PM [facility] REPOSITORY TYPE CODE TESTS RESULT OUT OF REFERENCE UNITS RANGE LAB TP 6.3-8.0 g/dL Protein, Total 7.8 LAB ALB 3.9-4.9 g/dL Albumin 4.9 LAB CA 8.5-10.2 mg/dL Calcium, Total 9.7 LAB TBIL 0.2-1.3 mg/dL Bilirubin, Total 0.6 LAB ALKP 32-117 U/L Alkaline Phosphatase 53 LAB AST 13-35 U/L AST 18 LAB GLU 74-99 mg/dL Glucose 91 Result Comment: The [place] Diabetes Association (ADA) provides guidance for cutoff [...] Standards of Medical Care in Diabetes 2016, [place] Diabetes Association. Diabetes Care. 2016.39(Suppl 1). LAB [...] GFR. Performed By: #### CMP, TSH #### [facility] [address] [address] TSH Collected: 09/22/2017 Status: F Source: NAVARRE 12:22 PM [facility] REPOSITORY TYPE [...] Clinical Practice Guideline. J Clin Endocrinol Metab, 2012:97:1479-1831. 2. Jorge CHILD. Overview of thyroid disease in . UpToDate. 2016. Accessed on October 25, 2015. Performed By: #### CMP, TSH #### [facility] [address] [address] ALLERGIES ALLERGIES DATE TYPE / CODE NAME / CODE REACTION SEVERITY SOURCE 05/23/2018 Drug No Known Unknown [facility] Allergy/416 Allergies/T77099 [facility] 235007(SNOM 0388(RXNORM) Repository ED CT) Drug NO KNOWN [facility] Class/[address] [facility] 1003(SNOMED Repository CT) ENCOUNTERS ENCOUNTERS ADMIT/DISCHARGE ACCOUNT ADMITTING ENCOUNTER LOCATION SOURCE NUMBER CLASS 05/29/2018 [id number] [facility] ing:LAB Repository 05/23/2018 [id number] Ambulatory [facility] ing:PAVLAB Repository 05/23/2018/05/23/19 [id number] Ambulatory BMSBuilding:B Kathy 19 MS.[facility] Repository 05/11/2018 [id number] Ambulatory [facility] ing:LAB Repository 04/25/2018 [id number] Ambulatory [facility] ing:LABSPEC Repository 04/25/2018/04/25/20 [id number] Ambulatory BMSBuilding:B [place] 18 MS.[facility] Repository 11/09/2017 [id number] [facility] ing:OPBI Repository 10/29/2017/11/02/19 [id number] Ambulatory [address] Repository 09/22/2017/09/24/19 [id number] Ambulatory [address] Repository PAYERS PAYERS ENCOUNTER GUARANTOR PAYER SUBSCRIBER SOURCE 05/29/2018 JAMES R Primary NOT GIVENUNK [place] [id number] [place] Insurance:SELF PAY [address] [address]Psx: Number: Effective Repository Date:2018-05-29 () 05/23/2018 JAMES R Primary MIRACLE R [place] [id number] Insurance:AULTCAREPol MULLETDOB: [facility] PRIVATE icy Number: [id number] [id number] Repository [place] [address]Kzk: e Date:5078-13-70LA [address] [place] [address] () [phone]: 05/23/2018 Secondary NOT GIVENUNK [place] Insurance:SELF PAY [facility] Number: Effective Repository Date:2018-05-23 05/23/2018 JAMES R Primary MIRACLE R [place] [id number] [place] Insurance:AULTCAREPol MULLETDOB: [address] ic Number: [id number] [address]Dir: [id number] Repository e Date:8845-54-68NR () [address] [place] [phone]: 05/23/2018 Secondary NOT GIVENUNK [place] Insurance:SELF PAY [facility] Number: Effective Repository Date:2018-05-23 05/11/2018 JAMES R Primary MIRACLE R [place] [id number] [place] Insurance:AULTCAREPol MULLETDOB: [address] icy Number: [id number] [address]Lzc: [id number] Repository e Date:2032-84-76GP () [address] [place] [phone]: 05/11/2018 Secondary NOT GIVENUNK [place] Insurance:SELF PAY [facility] Number: Effective Repository Date:2018-05-11 04/25/2018 JAMES R Primary MIRACLE R [place] [id number] [place] Insurance:AULTCAREPol MULLETDOB: [address], icy Number: [id number] Santa Fe Medical Center [address]Gxk: [id number] Repository e Date:8496-95-22AG () [address] [place] [phone]: 04/25/2018 Secondary NOT GIVENUNK [place] Insurance:SELF PAY [facility] Number: Effective Repository Date:2018-04-25 04/25/2018 JAMES Primary MIRACLE R [place] [id number] Insurance:AULTCAREPol MULLETDOB: [address] icy Number: [id number], [id number] [address]Vmi: e Date:9605-95-11MN [address] [place] [address] () [phone]: 04/25/2018 Secondary NOT GIVENUNK [place] Insurance:SELF PAY [facility] Number: Effective Repository Date:2018-02-15 11/09/2017 James Primary MIRACLE R [place] [id number] Insurance:AULTCAREPol MULLETDOB: [address] icy Number: [id number], [id number] [place]ository [place] [address]Bqh: e Date:8832-27-80UA [address] [place] [address] () [phone]: 11/09/2017 Secondary NOT GIVENUNK [place] Insurance:SELF PAY [facility] Number: Effective Repository Date:2017-09-23
== END ==
PROVIDERS: Nurse Practitioner Women's Health; Family Provider Family Medicine; PCP Family Medicine; Referring Provider Obstetrics & Gynecology; Visit Provider Obstetrics & Gynecology
DX: N97.0 Female infertility associated with anovulation (principal)
CPT/HCPCS: 36415; 82670; 83001; 84146

== ENCOUNTER → 2018-06-16 09:24 | Outpatient (CLI) | payer OTHER, SELFPAY ==
[2018-05-23 09:30] VITALS: BMI 25.0
[2018-06-16 11:39] LABS: Progesterone Level 8.23 ng/mL (See Comment)
== END ==
PROVIDERS: Family Provider Family Medicine; PCP Family Medicine; Referring Provider Nurse Practitioner Women's Health; Visit Provider Nurse Practitioner Women's Health
DX: N97.0 Female infertility associated with anovulation (principal)
CPT/HCPCS: 36415; 84144

== ENCOUNTER → 2018-08-22 17:10 | Outpatient (CLI) | payer OTHER, SELFPAY ==
[2018-08-22 13:45] VITALS: BMI 25.0
[2018-08-22 22:35] LABS: Chlamydia Trachomatis by PCR Negative (Negative); Neisserai gonorrhoeae by PCR Negative (Negative); Probe Check PASS; Sample Adequacy Control PASS; Specimen Processing Control PASS
== END ==
PROVIDERS: Family Provider Family Medicine; PCP Family Medicine; Visit Provider Obstetrics & Gynecology
DX: O09.90 Supervision of high risk pregnancy, unspecified, unspecified trimester (principal); Z3A.00 Weeks of gestation of pregnancy not specified
CPT/HCPCS: 87086; 87088; 87491; 87591

== ENCOUNTER → 2018-08-23 07:42 | Outpatient (CLI) | payer OTHER, SELFPAY ==
[2018-08-22 13:45] VITALS: BMI 25.0
== END ==
PROVIDERS: Family Provider Family Medicine; PCP Family Medicine; Referring Provider Obstetrics & Gynecology; Visit Provider Obstetrics & Gynecology
DX: O09.90 Supervision of high risk pregnancy, unspecified, unspecified trimester (principal)

== ENCOUNTER → 2018-09-19 13:13 | Outpatient (CLI) | payer OTHER, SELFPAY ==
[2018-09-19 13:04] VITALS: BMI 25.0
[2018-09-19 13:46] LABS: Basophil% 0.2 % (0-1); Eosinophils% 0.7 % (0-5); Hematocrit 35.3 % (37-47); Hemoglobin 11.7 g/dl (12.0-15.0); Lymphocyte % 24.6 % (19-41); Mean Corp Hgb Conc 33.1 g/gl (32-36); Mean Corpuscular Hgb 28.7 pg (27.0-32.0); Mean Corpuscular Volume 86.7 fL (81-99); Mean Platelet Vol. 9.4 fl (6.2-12.0); Monocyte% 6.1 % (0-10); Neutrophil % 68.2 % (47-70); Platelet Count 205 K/mm3 (150-450); RBC Distribution Width CV 14.5 % (11.6-14.6); RBC Distribution Width SD 46.1 fl (35.1-43.9); Red Blood Count 4.07 M/mm3 (4.2-5.4); White Blood Count 8.1 K/mm3 (4.4-11.0)
[2018-09-19 13:47] LABS: Absolute Lymphocyte Count 1.99 X10^3/ul (0.83-4.51); Absolute Neutrophil Count 5.5 X10^3/uL (2.0-7.7); Basophil# 0.02 X10^3/uL; Eosinophil# 0.06 X10^3/uL; Lymphocyte # 1.99 X10^3/ul (4.0); Monocyte# 0.49 X10^3/uL; Neutrophil # 5.51 X10^3/uL (2.7-7.7); POSITIVE COUNT NO; POSITIVE DIFFERENTIAL NO; POSITIVE MORPHOLOGY NO
[2018-09-19 15:04] LABS: HIV - WCH Non-Reactive (Nonreactive); Rubella IgG 80.8 IU/mL
[2018-09-20 09:39] LABS: HEPATITIS B SURFACE AG Negative (Negative)
[2018-09-23 03:28] LABS: Rapid Plasmin Reagin (RPR) NONREACTIVE (NONREACTIVE)
== END ==
PROVIDERS: Family Provider Family Medicine; PCP Family Medicine; Visit Provider Obstetrics & Gynecology
DX: O09.90 Supervision of high risk pregnancy, unspecified, unspecified trimester (principal); Z3A.00 Weeks of gestation of pregnancy not specified
CPT/HCPCS: 36415; 85025; 86592; 86703; 86762; 86850; 86900; 87340

== ENCOUNTER → 2019-01-12 16:30 | Outpatient (CLI) | payer OTHER, SELFPAY ==
[2019-01-12 16:27] VITALS: BMI 25.0
[2019-01-12 17:30] LABS: Absolute Lymphocyte Count 2.37 X10^3/uL (0.83-4.51); Absolute Neutrophil Count 6.8 X10^3/uL (2.0-7.7); Basophil# 0.08 X10^3/uL; Basophil% 0.8 % (0-1); Eosinophil# 0.12 X10^3/uL; Eosinophils% 1.2 % (0-5); Hematocrit 34.4 % (37-47); Hemoglobin 11.1 g/dL (12.0-15.0); Lymphocyte # 2.37 X10^3/ul (4.0); Lymphocyte % 23.1 % (19-41); Mean Corp Hgb Conc 32.3 g/dL (32-36); Mean Corpuscular Hgb 29.6 pg (27.0-32.0); Mean Corpuscular Volume 91.7 fL (81-99); Mean Platelet Vol. 10.1 fl (6.2-12.0); Monocyte# 0.56 X10^3/uL; Monocyte% 5.4 % (0-10); NRBC Flagged by Analyzer 0 % (0-5); Neutrophil # 6.78 X10^3/uL (2.7-7.7); Neutrophil % 65.9 % (47-70); Platelet Count 189 K/mm3 (150-450); RBC Distribution Width CV 14.4 % (11.6-14.6); RBC Distribution Width SD 47.8 fl (35.1-43.9); Red Blood Count 3.75 M/mm3 (4.2-5.4); White Blood Count 10.3 K/mm3 (4.4-11.0)
[2019-01-12 18:03] LABS: Glucose Challenge Gest 1H 50g 140 mg/dL (70-140)
== END ==
PROVIDERS: Family Provider Family Medicine; PCP Family Medicine; Referring Provider Nurse Practitioner Women's Health; Visit Provider Nurse Practitioner Women's Health
DX: O09.90 Supervision of high risk pregnancy, unspecified, unspecified trimester (principal); Z3A.00 Weeks of gestation of pregnancy not specified
CPT/HCPCS: 36415; 82950; 85025

== ENCOUNTER → 2019-01-30 06:47 | Outpatient (CLI) | payer OTHER, SELFPAY ==
[2019-01-12 16:27] VITALS: BMI 25.0
[2019-01-23 10:07] VITALS: BMI 25.0
[2019-01-30 07:25] LABS: Glucose GTT-Gestation. Fasting 80 mg/dL (<105)
[2019-01-30 09:28] LABS: Glucose GTT-Gestational 1 Hr 98 mg/dL (<190)
[2019-01-30 10:10] LABS: Glucose GTT-Gestational 2 Hr 102 mg/dL (<165)
[2019-01-30 11:27] LABS: Glucose GTT-Gestational 3 Hr 53 L (<145)
== END ==
PROVIDERS: Family Provider Family Medicine; PCP Family Medicine; Referring Provider Obstetrics & Gynecology; Visit Provider Obstetrics & Gynecology
DX: O99.810 Abnormal glucose complicating pregnancy (principal); Z3A.00 Weeks of gestation of pregnancy not specified
CPT/HCPCS: 36415; 82951; 82952

== ENCOUNTER → 2019-02-20 13:15 | Outpatient (CLI) | payer OTHER, SELFPAY ==
[2019-01-23 10:07] VITALS: BMI 25.0
[2019-02-09 13:24] VITALS: BMI 25.0
--- NOTE | 2019-02-20 13:17 | US_ITS ---
STUDY: SECOND AND THIRD TRIMESTER OBSTETRICAL ULTRASOUND REASON FOR EXAM: Female, 38 years old. Growth.. LMP: June 23, 2018. TECHNIQUE: Transabdominal TECHNICAL QUALITY: Adequate. PRIOR ULTRASOUND: None. FINDINGS: There is a single intrauterine fetus. The fetus is in a cephalic presentation. There is demonstrated cardiac activity with a heart rate of 132 bpm. There is a normal amniotic fluid volume. The largest amniotic fluid pocket measures 6.29 cm. The amniotic fluid index (LEXIS) is 15.2 by cm. The placenta is anterior in location and is not low lying. There are Grade 0 placental changes. The cervix measures 3.4 cm in length. The adnexal regions are not visualized. BIOMETRY: BPD: 9.11 cm: 36 weeks, 6 days HC: 33.02 cm: 37 weeks, 1 days AC: 34.58 cm: 38 weeks, 3 days FL: 6.73 cm: 34 weeks, 4 days CI: 82.86 FL/BPD: 73.83 FL/HC: 20.37 FL/AC: 19.46 HC/AC: 0.96 age by current US: 36 weeks, 4 days. MONA by current US: March 16, 2019.. Estimated weight: 3177 grams, +/- 47 grams, 98 %. Age by LMP: 34 weeks, 3 days. MONA by LMP: March 31, 2019. US/OB Limited With Biometrics IMPRESSION: 1. Live single intrauterine at 36 weeks, 4 days. MONA is March 16, 2019. 2. EFW of 3117 g. 3. LEXIS of 13.68 cm 4. Anterior grade 0 placenta. 5. Vertex presentation. Electronically Signed: Bar Wetzel DO at 15:56 EDT Tel [phone], Service support ,
== END ==
PROVIDERS: Family Provider Family Medicine; PCP Family Medicine; Referring Provider Nurse Practitioner Women's Health; Visit Provider Nurse Practitioner Women's Health
DX: O09.529 Supervision of elderly multigravida, unspecified trimester (principal); Z3A.00 Weeks of gestation of pregnancy not specified
CPT/HCPCS: 76816

== ENCOUNTER → 2019-02-22 10:37 | Outpatient (CLI) | payer OTHER, SELFPAY ==
[2019-02-20 14:33] VITALS: BMI 25.0
[2019-02-22 11:17] LABS: Hemoglobin A1c 4.8 % (4.2-6.3)
== END ==
PROVIDERS: Family Provider Family Medicine; PCP Family Medicine; Referring Provider Obstetrics & Gynecology; Visit Provider Obstetrics & Gynecology
DX: O99.810 Abnormal glucose complicating pregnancy (principal); O36.60X0 Maternal care for excessive fetal growth, unspecified trimester, not applicable or unspecified; Z3A.00 Weeks of gestation of pregnancy not specified
CPT/HCPCS: 36415; 83036

== ENCOUNTER → 2019-03-06 12:49 | Outpatient (CLI) | payer OTHER, SELFPAY ==
[2019-03-06 11:22] VITALS: BMI 25.0
== END ==
PROVIDERS: Family Provider Family Medicine; PCP Family Medicine; Referring Provider Obstetrics & Gynecology; Visit Provider Obstetrics & Gynecology
DX: O09.00 Supervision of pregnancy with history of infertility, unspecified trimester (principal)
CPT/HCPCS: 87077; 87081; 87186

== ENCOUNTER → 2019-03-20 08:28 | Outpatient (CLI) | payer OTHER, SELFPAY ==
[2019-02-20 14:33] VITALS: BMI 25.0
[2019-03-14 09:03] VITALS: BMI 25.0
--- NOTE | 2019-03-20 08:29 | US_ITS ---
STUDY: SECOND AND THIRD TRIMESTER OBSTETRICAL ULTRASOUND REASON FOR EXAM: Female, 38 years old growth. LMP: June 24, 2018. TECHNIQUE: Transabdominal TECHNICAL QUALITY: Adequate. PRIOR ULTRASOUND: None. FINDINGS: There is a single intrauterine fetus. The fetus is in a cephalic presentation. There is demonstrated cardiac activity with a heart rate of 164 bpm. There is a normal amniotic fluid volume. The largest amniotic fluid pocket measures 5.6 cm. The amniotic fluid index (LEXIS) is 15.5 cm. The placenta is anterior in location and is not low lying. There are Grade 1 placental changes. The cervix measures was not obtained due to the position. The adnexal regions are not visualized. BIOMETRY: BPD: 9.54 cm: 38 weeks, 6 days HC: 34.23 cm: 39 weeks, 3 days AC: 40.01 cm: Out of range. FL: 7.45 cm: 38 weeks, 0 days CI: 85% FL/BPD: 78% FL/HC: FL/AC: 18.6% HC/AC: 0.86 age by current US: 38 weeks, 2 days. MONA by current US: April 01, 2019. Estimated weight: 4506 grams, +/- 667 grams, 99 %. age by prior US: 40 weeks, 4 days. MONA by prior US: March 16, 2019. Age by LMP: 38 weeks, 3 days. MONA by LMP: March 31, 2019. US/OB Limited With Biometrics IMPRESSION: Single live intrauterine gestation with a mean gestational age of 40 weeks and 4 days. The measurements obtained today fall within normal expected range. Electronically Signed: Neil Koenig, at 9:44 EST , Service support ,
== END ==
PROVIDERS: Family Provider Family Medicine; PCP Family Medicine; Referring Provider Nurse Practitioner Women's Health; Visit Provider Nurse Practitioner Women's Health
DX: O36.60X0 Maternal care for excessive fetal growth, unspecified trimester, not applicable or unspecified (principal); O99.810 Abnormal glucose complicating pregnancy; Z3A.00 Weeks of gestation of pregnancy not specified
CPT/HCPCS: 76816

== ENCOUNTER 2019-03-27 06:50 | Inpatient (IN) | payer OTHER, SELFPAY ==
[2019-03-20 09:03] VITALS: BMI 25.0
[2019-03-27] MEDS: Lactated Ringers 1,000 ML 50 ML IV (07:25)
[2019-03-27 07:30] VITALS: BMI 30.9
[2019-03-27 07:51] LABS: Absolute Lymphocyte Count 1.69 X10^3/uL (0.83-4.51); Absolute Neutrophil Count 7.2 X10^3/uL (2.0-7.7); Basophil# 0.07 X10^3/uL; Basophil% 0.7 % (0-1); Eosinophil# 0.07 X10^3/uL; Eosinophils% 0.7 % (0-5); Hematocrit 34.3 % (37-47); Hemoglobin 11.2 g/dL (12.0-15.0); Lymphocyte # 1.69 X10^3/ul (4.0); Lymphocyte % 17.1 % (19-41); Mean Corp Hgb Conc 32.7 g/dL (32-36); Mean Corpuscular Hgb 29.2 pg (27.0-32.0); Mean Corpuscular Volume 89.3 fL (81-99); Mean Platelet Vol. 10.3 fl (6.2-12.0); Monocyte# 0.62 X10^3/uL; Monocyte% 6.3 % (0-10); NRBC Flagged by Analyzer 0 % (0-5); Neutrophil # 7.24 X10^3/uL (2.7-7.7); Neutrophil % 73.3 % (47-70); Platelet Count 161 K/mm3 (150-450); RBC Distribution Width CV 15.3 % (11.6-14.6); RBC Distribution Width SD 49.5 fl (35.1-43.9); Red Blood Count 3.84 M/mm3 (4.2-5.4); White Blood Count 9.9 K/mm3 (4.4-11.0)
[2019-03-27] MEDS: Oxytocin 30 units/NS 500 ml 30 UNITS/500 ML IV.SOLN IV (08:33)
[2019-03-27] MEDS: Lactated Ringers 500 ML 999 ML IV (11:32)
[2019-03-27] MEDS: fentaNYL-bupivacaine (epidural) 100 ML BAG EPIDURAL (12:52)
[2019-03-27] MEDS: Oxytocin 30 units/NS 500 ml 30 UNITS/500 ML IV.SOLN 334 UNITS IV (13:29)
--- NOTE | 2019-03-27 13:49 | OP.PCM_ITS ---
Problem List (1) AMA (advanced maternal age) multigravida 35+ Status: Acute Qualifiers: Trimester: first trimester Qualified Code(s): O09.521 - Supervision of elderly multigravida, first trimester Comment: genetic counseling provided, declines all testing, plan growth us at 36 weeks normal anatomy (2) Abnormal glucose affecting Status: Acute Comment: elevated 1 hour- Normal 3 hr GTT (3) Atypical squamous cells of undetermined significance (ASC-US) on cervical Pap smear Status: Acute Comment: HPV negative-repeat pap in 1 year (4) Counseling for control regarding intrauterine device (IUD) Status: Acute Comment: IUD pp (5) H/O Hodgkin's lymphoma Status: Acute Comment: in remission 10+ years (6) History of intracranial hemorrhage Status: Acute Comment: normal imaging in last , vaginal deliveries recommended in past (7) Large for gestational age fetus Status: Acute Comment: recommend HgA1C, repeat growth us in 4 weeks (8) Positive GBS test Status: Acute Comment: needs ATB at time of delivery- sensitive to clindamycin (9) Status: Acute Qualifiers: Weeks of gestation: 38 weeks Qualified Code(s): Z3A.38 - 38 weeks gestation of Comment: Declines, NIPT, Carrier, NTD. nl anatomy. (10) Supervision of high risk , antepartum Status: Acute Comment: PRR MONA 03/31/19 surprise PC Herrera Spouse Arabi Vaginal Delivery Maternal Presentation: Medically Indicated Induction iol lga Date of Procedure: 03/27/19 Pre-Operative Diagnosis: iol lga Post-Operative Diagnosis: same Surgery/ Procedure Performed: Spontaneous Vaginal Delivery Type of Anesthesia: Epidural Description of Procedure: delivered spontaneously without complication vaginal delivery precipitous delivery after epidural, small 1st degree perineal laceration repair without complication Presentation: LYRIC Placental Delivery Description: Spontaneous Placenta Disposition: [facility] Cord Vessel Description: 3 Vessels Multi Select Codes - Urinary/Genital Urinary/Genital CPT Codes: 06910 Vaginal Delivery [facility]
--- NOTE | 2019-03-27 13:49 | HP.PCM_ITS ---
- Problem List (1) Positive GBS test Status: Acute Comment: needs ATB at time of delivery- sensitive to clindamycin (2) Large for gestational age fetus Status: Acute Comment: recommend HgA1C, repeat growth us in 4 weeks (3) Counseling for control regarding intrauterine device (IUD) Status: Acute Comment: IUD pp (4) History of intracranial hemorrhage Status: Acute Comment: normal imaging in last , vaginal deliveries recommended in past (5) Abnormal glucose affecting Status: Acute Comment: elevated 1 hour- Normal 3 hr GTT (6) H/O Hodgkin's lymphoma Status: Acute Comment: in remission 10+ years (7) Supervision of high risk , antepartum Status: Acute Comment: PRR MONA 03/31/19 surprise PC Herrera Spouse Kirill (8) AMA (advanced maternal age) multigravida 35+ Status: Acute Qualifiers: Trimester: first trimester Qualified Code(s): O09.521 - Supervision of elderly multigravida, first trimester Comment: genetic counseling provided, declines all testing, plan growth us at 36 weeks normal anatomy (9) Status: Acute Qualifiers: Weeks of gestation: 38 weeks Qualified Code(s): Z3A.38 - 38 weeks gestation of Comment: Declines, NIPT, Carrier, NTD. nl anatomy. (10) Atypical squamous cells of undetermined significance (ASC-US) on cervical Pap smear Status: Acute Comment: HPV negative-repeat pap in 1 year History Date of Admission: 03/28/19 Final MONA: 03/31/19 Gestational age: 39 Weeks and 4 Days History of this : This is a 38 year-old, , at 39 weeks gestational age presents for IOL secondary to LGA. Medical History: Medical History (Last Reviewed 03/20/19 @ 09:03 by Ivelisse Miller) Anxiety F41.9 Brain bleed I61.[address], negative scan in last Depression F32.9 Hodgkin lymphoma C81.90 in remission Surgical History: Surgical History (Last Reviewed 03/20/19 @ 09:03 by Ivelisse Miller) H/O LEEP Onset Date: ~2004 Z98.890 Allergies No Known Allergies Allergy (Verified 03/20/19 09:03) Home Medications: Home Medications Citalopram [Celexa] 20 mg PO DAILY 06/14/16 docosahexanoic acid 200 mg capsule mg PO cap 01/23/19 Smoking Status: Never smoker NST - FHR Rate Baby A Baseline: 140 Variability:: Moderate Accelerations:: 15 x 15 Decelerations:: None NST Reactive:: Yes FHR Category:: Category I Uterine Activity:: no regular History Past Pregnancies: Past Pregnancies previous term 6 1/2 lbs Labs: Mom's Labs & Results 03/27/19 03/27/19 07:25 07:25 WBC 9.9 RBC 3.84 L Hgb 11.2 L Hct 34.3 L MCV 89.3 MCH 29.2 MCHC 32.7 RDW Std Deviation 49.5 H RDW Coeff of Ada 15.3 H Plt Count 161 MPV 10.3 Immature Gran % (Auto) 1.900 H Neut % (Auto) 73.3 H Lymph % (Auto) 17.1 L [place] % (Auto) 6.3 Eos % (Auto) 0.7 Baso % (Auto) 0.7 Absolute Neuts (auto) 7.2 Absolute Lymphs (auto) 1.69 Nucleated RBC % 0 Blood Type O POSITIVE Antibody Screen NEGATIVE Course Did the patient receive Yes care? Labs Blood Type: O RH: POSITIVE RPR/VDRL/Syphilis Nonreactive Rubella status Immune HbSAg Negative Date Done: 09/19/18 Chlamydia Negative Gonorrhea Negative HIV/AIDS Non-Reactive Group B Strep: Positive Current Obstetrical History Gestational Diabetes No Incompetent Cervix No Infertility No IUGR No Macrosomia Yes: measuring 99% at 38 weeks Hypertension/Pre-eclampsia No Placenta Previa/Abruption No PTL/PROM No Uterine anomaly No Oligohydramnios No Polyhydramnios No Multiple gestation No Past Medical History Asthma No Diabetes No Hypertension No Heart disease No Mitral valve prolapse No Neurologic/Seizure disorder/ Yes: occasional migraines Migraines Kidney disease No Liver disease No Varicosities No Clotting disorders/Hx of DVT No Thyroid Dysfunction No Other medical diseases Yes: hodgkins lymphoma in 2005, remission in 2006 Psychiatric disorders Yes: hx anxiety and depression Enter DETAILS of medical abnormal ct scan with potential brain bleed 6-7 history years ago, had ct scan before last and was resolved Social History Marital Status: Alleged father Parrish Hx Smoking No Smoking Status Never smoker How long have you used n/a substances (years)? Expected Delivery Method: Spontaneous Vaginal Review of Systems Constitutional: Denies: Fever, Malaise Eyes: Denies: Blurred vision, Vision Change HEENT: Denies: Head Aches, Visual Changes Cardiovascular: Denies: Chest Pain, Palpitations Respiratory: Denies: Cough, Shortness of Breath, Wheezing Gastrointestinal: Denies: Abdominal Pain, Diarrhea, Nausea, Vomiting Genitourinary: Denies: Dysuria, Hematuria Musculoskeletal: Denies: Joint Pain, Muscle pain Skin: Denies: Lesions, Rash Neurological: Denies: Blurred vision, Focal weakness, Headaches Psychiatric: Denies: Anxiety, Depression Endocrine: Denies: Heat/ Cold Intolerance Hematologic/ Lymphatic: Denies: Easy Bruising, Easy Bleeding Physical Exam General: Alert, Cooperative, No apparent distress HEENT: Atraumatic, Normocephalic. Negative for: Thyromegaly, Lymphadenopathy Cardiovascular: Regular rate Lungs: Normal air movement Abdomen: Soft, Non Tender, Gravid Neurological: Deep Tendon Reflexes 2+/4 and Symmetrical, Neuro grossly intact. Negative for: Clonus AUTOMOBILE APPRAISER: Normal external genitalia. Negative for: Vulvar lesions Estimated gestational size: Large for gestational age Presentation: Cephalic Cervix Dilation (cm): 3 Assessment/Plan All Active Problems (Last Reviewed 03/20/19 @ 09:03 by Ivelisse Miller) Positive GBS test (Acute) Large for gestational age fetus (Acute) Counseling for control regarding intrauterine device (IUD) (Acute) History of intracranial hemorrhage (Acute) Abnormal glucose affecting (Acute) H/O Hodgkin's lymphoma (Acute) Supervision of high risk , antepartum (Acute) AMA (advanced maternal age) multigravida 35+ (Acute) (Acute) Atypical squamous cells of undetermined significance (ASC-US) on cervical Pap smear (Acute) This is a 38 year-old, , at 39 weeks gestational age presents for IOL LGA. gbs pos- pcn pit per protocol epi PRN
[2019-03-27] MEDS: Acetaminophen 500 MG Tablet 1000 MG PO (19:33)
[2019-03-27 20:55] VITALS: BP 105/60; PULSE 82; RESP 16; TEMP 36.8
[2019-03-28 00:50] VITALS: BP 117/67; PULSE 76; RESP 18; TEMP 36.6
[2019-03-28 04:10] VITALS: BP 105/62; PULSE 75; RESP 16; TEMP 36.7
[2019-03-28] MEDS: Acetaminophen 500 MG Tablet 1000 MG PO ×2 (04:25→12:13)
--- NOTE | 2019-03-28 07:45 | DCINST_ITS ---
Additional Instructions: If you experience any of the following, contact your healthcare provider. * Bleeding that soaks a pad every hour for 2 hours * Fever 100.4 or higher * Unrelieved incision or abdominal pain * Swelling, redness, discharge or bleeding from your incision or episiotomy site * Your incision begins to separate * Problems urinating (including inability to urinate or burning while urinating). * Visual changes * Severe headache * Flu-like symptoms * Pain or redness in one of both of your breasts * Pain, warmth, tenderness or swelling in your legs, especially the calf area * Frequent nausea and vomiting * Symptoms of depression or anxiety If you experience any of the following, call 911 or go to the nearest Emergency Room. * Chest pain * Problems breathing * Seizure activity * Partial or complete paralysis of a body part, slurred speech, weakness or drooping of the face, or a sudden inability to walk or hold your balance Allergies/Adverse Reactions: Allergies No Known Allergies Allergy (Verified 03/20/19 09:03) Medications to take at Discharge Citalopram [Celexa] 20 mg PO DAILY 06/14/16 docosahexanoic acid 200 mg capsule mg PO cap 01/23/19 Primary Care Physician: Norma Chaidez MD [Primary Care Provider] - Test Results: Test results from this visit will be discussed in further detail at your follow- up appointment, if applicable.
--- NOTE | 2019-03-28 07:45 | PCM.PN.OB ---
Subjective: doing well no complaints pain controlled no CP SOB N V ambulating well tolerating po lochia moderate, going well - Physical Exam Vitals/I&O's: Vital Signs Temp Pulse Resp BP 98.1 F 75 16 105/62 03/28/19 04:10 03/28/19 04:10 03/28/19 04:10 03/28/19 04:10 Weight: 203 lb 0.732 oz Body Mass Index (BMI) 30.9 Intake and Output for Last 24 Hours 03/26/19 03/27/19 03/28/19 23:59 23:59 23:59 Intake Total 1702.57 / 1702.57 Output Total 1000 / 1000 Balance 702.57 / 702.57 General: Oriented x3 Abdomen: Soft, Non Tender, Non-Distended, - - FF at U. Laboratory Results 03/27/19 07:25: WBC 9.9, RBC 3.84 L, Hgb 11.2 L, Hct 34.3 L, MCV 89.3, MCH 29.2, MCHC 32.7, RDW Std Deviation 49.5 H, RDW Coeff of Ada 15.3 H, Plt Count 161, MPV 10.3, Immature Gran % (Auto) 1.900 H, Neut % (Auto) 73.3 H, Lymph % (Auto) 17.1 L, [place] % (Auto) 6.3, Eos % (Auto) 0.7, Baso % (Auto) 0.7, Absolute Neuts (auto) 7.2, Absolute Lymphs (auto) 1.69, Nucleated RBC % 0 03/27/19 07:25: Blood Type O POSITIVE, Antibody Screen NEGATIVE Current Medications Acetaminophen (Tylenol) 1,000 mg PO Q8H PRN PRN PRN Reason: Pain Score 1-3/10 Last Admin: 03/28/19 04:25 Dose: 1,000 mg Documented by: Hydrocodone Bitart/Acetaminophen ([place] 5mg-325mg) 1 - 2 tablet PO Q4H PRN PRN PRN Reason: PAIN Bisacodyl (Dulcolax) 10 mg RECTAL UD PRN PRN Reason: If no BM Citalopram Hydrobromide (Celexa) 20 mg PO DAILY FARZAD Dibucaine (Dibucaine) 1 applic TOPICAL TID PRN PRN; Protocol PRN Reason: Discomfort Hydrocortisone (Hytone) 1 applic TOPICAL TID PRN PRN; Protocol PRN Reason: Discomfort Methylergonovine Maleate (Methergine) 0.2 mg IM X1 PRN PRN Reason: Excess bleeding/uterine atony Naproxen (Naprosyn) 500 mg PO BID PRN PRN PRN Reason: Pain or Fever Ondansetron HCl (Zofran) 4 mg IV Q4H PRN PRN PRN Reason: Nausea Senna/Docusate Sodium (Senokot-S, Desi-Colace) 1 - 2 tablet PO DAILY PRN PRN PRN Reason: Constipation Simethicone (Mylicon) 80 mg PO PCHS PRN PRN Reason: Indigestion/Stomach pain Sodium Chloride () 5 - 15 ml IV UD PRN PRN Reason: SALINE FLUSH Medical Necessity - Tobacco Use Smoking Status: Never smoker Assessment/Plan All Active Problems (Last Reviewed 03/20/19 @ 09:03 by Ivelisse Miller) Positive GBS test (Acute) Large for gestational age fetus (Acute) Counseling for control regarding intrauterine device (IUD) (Acute) History of intracranial hemorrhage (Acute) Abnormal glucose affecting (Acute) H/O Hodgkin's lymphoma (Acute) Supervision of high risk , antepartum (Acute) AMA (advanced maternal age) multigravida 35+ (Acute) (Acute) Atypical squamous cells of undetermined significance (ASC-US) on cervical Pap smear (Acute) s/p PPD # 1 1. routine post delivery care 2. breast feeding- support given 3. rh positive 4. rubella immune 5. home today
--- NOTE | 2019-03-28 07:45 | PCM.DCVAG ---
Additional Instructions: If you experience any of the following, contact your healthcare provider. Bleeding that soaks a pad every hour for 2 hours Fever 100.4 or higher Unrelieved incision or abdominal pain Swelling, redness, discharge or bleeding from your incision or episiotomy site Your incision begins to separate Problems urinating (including inability to urinate or burning while urinating). Visual changes Severe headache Flu-like symptoms Pain or redness in one of both of your breasts Pain, warmth, tenderness or swelling in your legs, especially the calf area Frequent nausea and vomiting Symptoms of depression or anxiety If you experience any of the following, call 911 or go to the nearest Emergency Room. Chest pain Problems breathing Seizure activity Partial or complete paralysis of a body part, slurred speech, weakness or drooping of the face, or a sudden inability to walk or hold your balance Allergies/Adverse Reactions: Allergies No Known Allergies Allergy (Verified 03/20/19 09:03) Medications to take at Discharge Citalopram [Celexa] 20 mg PO DAILY 06/14/16 docosahexanoic acid 200 mg capsule mg PO cap 01/23/19 Primary Care Physician: Norma Chaidez MD [Primary Care Provider] - Test Results: Test results from this visit will be discussed in further detail at your follow-up appointment, if applicable.
[2019-03-28 09:00] VITALS: BP 110/58; PULSE 79; RESP 16; TEMP 36.3
[2019-03-28] MEDS: Citalopram 20 MG Tablet PO (12:14)
[2019-03-28 14:00] VITALS: BP 111/64; PULSE 79; RESP 16; TEMP 36.1
--- NOTE | 2019-03-28 14:20 | CASEMGMT ---
Social Work Assessment Labor and Delivery Unit Date of Referral: 03.27.2019; 03.28.2019 Time of Referral: 1920; 446 Referred By: Dr. Guillaume; Dr. Mcfarlane Date of Intervention: 03.28.2019 Time of Intervention: 0 Reason for Referral: maternal history of depression and anxiety History obtained from: medical records, mother of baby (MOB) Coleen Edwards, and father of baby (FOB) Kirill Edwards Household composition: MOB, FOB, and their older child. Home situation is reported to be safe and adequate. Patient's parent/guardian status: MOB is 38 years old, to FOB who is 41 years old. No reports or indications of abuse in relationship. Upon admission, MOB denied to nursing upon admission any concerns for abuse. MOB and FOB now have 2 children: , Guilherme Edwards (born 03.27.2017) and Herrera (born 06.24.2016). Medical History: MOB is G2, P1 to 2 after delivery Guilherme. are started in the first trimester and regular thereafter. Record indicates maternal history of brain bleed (resolved) and Hodgkin?s Lymphoma in remission since 2017. Baby Guilherme was born at 39 weeks, large for gestational age at 9 pounds 4 ounces, Apgars 8 and 9 at 1 and 5 minutes of life. Educational Status: MARYJO is college educated, no issues with reading, writing, or learning comprehension issues. Financial Status: MARYJO works at [employer] and FOB owns [employer]. Infant Supplies: Reported to be adequate include a safe sleep space for baby and a car seat. Childcare/Caregiver(s): MOB and FOB. Transportation: No issues. Programs/Agencies Involved: None Children Services/Legal Issues: No reported history. Behavioral Health Issues: Mental Health History: MOB repots history of depression and anxiety, treatment currently with Celexa. MOB plans to stay on this in the period. MOB reports there were a few times over the last couple of years that MOB has considered going off the medicine, but reports have remained on it as MARYJO has gone through life transitions. Substance Use History: No history of illicit substance use or abuse reported. MARYJO has drank alcohol socially in the past, but not during . No tobacco use. Family History: MOB?s mother with history of depression. Record indicate the maternal grandfather history of alcohol use issues. Drug Screens: no maternal or infant screens noted in records. Family/Social Stressors: No reported stressors currently. Maternal history of depression and anxiety, but MOB is currently on medication and reports intent to stay on this during the period. Support Systems: MOB reports to have good support from FOB and from MOB?s mother. Both will be available to help when MOB discharges home with the baby. Depression/Shaken Baby/Safe Sleeping: Information given on said topics. ASSESSMENT: Met with MOB in room. FOB also present, quiet overall, but did give input when elicited. MOB appearing comfortable talking with FOB present as MOB was talkative, nondefensive, and providing information about history of depression and anxiety. MOB with relaxed motor activity, good eye contact, appropriate and congruent mood and affect. MOB reports to feel to have adequate support, to have needed supplies and intends to remain on antidepressant in the period. Educated MOB and FOB to risk factors, to FOB also being a risk for depression, and that both medication and counseling are known interventions to help. Discussed importance of support and allowing others to help. MBO voiced understanding. MOB accepting of informational packet on mood and anxiety disorder, which also includes local and online resources. No concerns voiced by nursing staff on mother/child bonding or interactions. MOB repots to feel a connection to baby. PLAN: MOB and baby to home when ready. Resources for mood and anxiety disorders provided. No other services requested or indicated. -BENY Mancilla, HAKEEM
== END 2019-03-28 15:45 | disposition home or self-care (01) | DRG 807 ==
PROVIDERS: Admitting Provider Obstetrics & Gynecology; Family Provider Family Medicine; PCP Family Medicine; Referring Provider Obstetrics & Gynecology; Visit Provider Obstetrics & Gynecology
DX: O99.824 Streptococcus B carrier state complicating childbirth (principal); O70.0 First degree perineal laceration during delivery; O62.3 Precipitate labor; O36.63X0 Maternal care for excessive fetal growth, third trimester, not applicable or unspecified; O99.814 Abnormal glucose complicating childbirth; O99.344 Other mental disorders complicating childbirth; F32.9 Major depressive disorder, single episode, unspecified; F41.9 Anxiety disorder, unspecified; Z79.899 Other long term (current) drug therapy; Z85.71 Personal history of Hodgkin lymphoma; Z86.73 Personal history of transient ischemic attack (TIA), and cerebral infarction without residual deficits; Z3A.38 38 weeks gestation of pregnancy; Z37.0 Single live birth
CPT/HCPCS: 59025; 59050; 85025; 86850; 86900; 86901; 99218; J7120; G0378

== ENCOUNTER → 2019-07-04 13:47 | Outpatient (CLI) | payer OTHER, SELFPAY ==
[2019-06-15 09:09] VITALS: BMI 30.9
--- NOTE | 2019-07-04 13:48 | US_ITS ---
STUDY: ULTRASOUND BREAST - RIGHT REASON FOR EXAM: Female, 39 years old. Has a palpable lump in the right breast and is nursing. TECHNIQUE: Axial and longitudinal images of the RIGHT breast were performed with a high resolution ultrasound transducer. # OF IMAGES: 6 COMPARISON: Previous mammogram obtained on 11/09/2017 FINDINGS: RIGHT Breast: There is a lesion in the superior lateral quadrant. The lesion lesion corresponds to multiple adjacent ducts. No underlying masses or lesions are seen. US/Breast Limited Unilateral IMPRESSION: The palpable density in the right breast represents adjacent milk ducts which are dilated. ASSESSMENT CATEGORY: BIRADS Category 2: Benign. A letter regarding these results will be sent to the patient by the facility within 30 days. Electronically Signed: Abelino Banerjee, at 18:04 EST Tel , Service support ,
== END ==
PROVIDERS: PCP Family Medicine; Referring Provider Nurse Practitioner Women's Health; Visit Provider Nurse Practitioner Women's Health
DX: N63.10 Unspecified lump in the right breast, unspecified quadrant (principal); N63.20 Unspecified lump in the left breast, unspecified quadrant
CPT/HCPCS: 76642

== ENCOUNTER → 2020-06-05 | Outpatient (CLI) | payer OTHER, SELFPAY ==
[2020-06-05 12:58] VITALS: BMI 22.6
[2020-06-10 15:39] LABS: HPV APTIMA, High Risk Negative (Negative)
== END | disposition home or self-care (01) ==
LOC: LABSPEC 16:40
PROVIDERS: PCP Family Medicine; Referring Provider Nurse Practitioner Women's Health; Visit Provider Nurse Practitioner Women's Health
DX: Z12.4 Encounter for screening for malignant neoplasm of cervix (principal)
CPT/HCPCS: 87624; 88175; G0145

== ENCOUNTER → 2020-07-26 09:50 | Outpatient (CLI) | payer OTHER, SELFPAY ==
[2020-06-05 12:58] VITALS: BMI 22.6
--- NOTE | 2020-07-26 10:01 | BI_ITS ---
MAMMOGRAPHY - BILATERAL SCREENING REASON FOR EXAM: Female, 40 years old. Routine annual screening examination. PERTINENT HISTORY: Non-contributory. TECHNIQUE: Digital bilateral breast alvarez (3D mammographic acquisition) in the CC and MLO projections. 2-D mediolateral oblique (MLO) and craniocaudad (CC) views of both breasts were obtained. CAD: Full Field Digital Mammography with Computer Added Detection was performed. COMPARISON: Comparison is made with prior study dated 11/09/2017. FINDINGS: Breast Composition: The breasts are extremely dense, which lowers the sensitivity of mammography. There are no dominant masses or suspicious calcifications. No other significant abnormalities are identified. There has been no significant change since the prior study. BI/SCRN MAMM (CAD)W/ALVAREZ BILAT IMPRESSION: Stable bilateral screening mammogram. Yearly follow-up mammogram recommended. (A) ASSESSMENT CATEGORY: BIRADS Category 1: Negative. A letter regarding these results will be sent to the patient by the facility within 30 days. Approximately 10% of breast cancers are not detected by mammography. A normal mammogram should not delay biopsy of a clinically suspicious abnormality. [id number] Electronically Signed: Neil Koenig MD at 12:54 EDT , Service support ,
== END ==
PROVIDERS: PCP Family Medicine; Referring Provider Nurse Practitioner Women's Health; Visit Provider Nurse Practitioner Women's Health
DX: Z12.31 Encounter for screening mammogram for malignant neoplasm of breast (principal)
CPT/HCPCS: 77063; 77067

== ENCOUNTER 2021-06-17 13:55 | Outpatient (CLI) | payer OTHER, SELFPAY ==
[2021-06-17 14:16] LABS: Absolute Lymphocyte Count 3.56 X10^3/uL (0.83-4.51); Absolute Neutrophil Count 3.9 X10^3/uL (2.0-7.7); Basophil# 0.07 X10^3/uL; Basophil% 0.9 % (0-1); Eosinophil# 0.11 X10^3/uL; Eosinophils% 1.4 % (0-5); Hemoglobin 12.6 g/dL (12.0-15.0); Lymphocyte # 3.56 X10^3/ul (0.83-4.51); Mean Corp Hgb Conc 32.3 g/dL (32-36); Mean Corpuscular Hgb 29.2 pg (27.0-32.0); Mean Corpuscular Volume 90.5 fL (81-99); Mean Platelet Vol. 9.6 fl (6.2-12.0); Monocyte# 0.46 X10^3/uL; Monocyte% 5.7 % (0-10); NRBC Flagged by Analyzer 0 % (0-5); Neutrophil # 3.87 X10^3/uL (2.7-7.7); Neutrophil % 47.8 % (47-70); Platelet Count 305 K/mm3 (150-450); RBC Distribution Width CV 13.6 % (11.6-14.6); RBC Distribution Width SD 45.7 fl (35.1-43.9); Red Blood Count 4.31 M/mm3 (4.2-5.4); White Blood Count 8.1 K/mm3 (4.4-11.0)
[2021-06-17 14:35] LABS: Vitamin D,25 Hydroxy 26.9 ng/mL
[2021-06-17 14:39] LABS: Thyroid Stim Hormone (TSH) 3.19 uIU/mL (0.358-3.74)
== END 2021-06-17 23:59 | disposition home or self-care (01) ==
LOC: PAVLAB 13:56
PROVIDERS: PCP Family Medicine; Referring Provider Obstetrics & Gynecology; Visit Provider Obstetrics & Gynecology
DX: R61 Generalized hyperhidrosis (principal)
CPT/HCPCS: 36415; 82306; 84443; 85025

== ENCOUNTER 2021-06-24 08:59 | Outpatient (CLI) | payer OTHER, SELFPAY ==
--- NOTE | 2021-06-24 09:01 | BI_ITS ---
MAMMOGRAPHY - BILATERAL DIAGNOSTIC REASON FOR EXAM: Female, 41 years old. Palpable lump at the 10 to 12 o''clock position of the left breast. History of treated Hodgkin''s lymphoma. PERTINENT HISTORY: Non-contributory. TECHNIQUE: Digital bilateral breast addie (3D mammographic acquisition) in the CC and MLO projections. 2-D mediolateral oblique (MLO) and craniocaudad (CC) views of both breasts were obtained. CAD: Full Field Digital Mammography with Computer Added Detection was performed. COMPARISON: Comparison is made with prior study of 07/26/2020 and 11/09/2017. FINDINGS: Breast Composition: The breasts are extremely dense, which lowers the sensitivity of mammography. There are no dominant masses or suspicious calcifications. No other significant abnormalities are identified. There has been no significant change since the prior study. BI/DIAG MAMM W/CAD, BILAT IMPRESSION: Stable bilateral diagnostic mammogram. With the patient''s history of a palpable lump in the left breast, correlation with ultrasound is recommended. ASSESSMENT CATEGORY: BIRADS Category 0: Incomplete. Need additional imaging evaluation. A letter regarding these results will be sent to the patient by the facility within 30 days. Approximately 10% of breast cancers are not detected by mammography. A normal mammogram should not delay biopsy of a clinically suspicious abnormality. Electronically Signed: Neil Koenig MD at 10:07 EST ,
--- NOTE | 2021-06-24 09:01 | US_ITS ---
STUDY: ULTRASOUND BREAST - LEFT REASON FOR EXAM: Female, 41 years old. Palpable lump left breast. TECHNIQUE: Axial and longitudinal images of the LEFT breast were performed with a high resolution ultrasound transducer. # OF IMAGES: 32 COMPARISON: Comparison is made with prior mammogram done earlier today. FINDINGS: LEFT Breast: The upper inner quadrant of the left breast was examined by ultrasound. Dense fibroglandular tissue. There is evidence of dilated ducts. No mass lesion is seen. US/Breast Limited Unilateral IMPRESSION: Dilated ducts. No mass lesion is seen. ASSESSMENT CATEGORY: BIRADS Category 2: Benign. A letter regarding these results will be sent to the patient by the facility within 30 days. Electronically Signed: Neil Koenig MD at 10:57 EST ,
== END 2021-06-24 23:59 | disposition home or self-care (01) ==
LOC: OPBI 08:59
PROVIDERS: PCP Family Medicine; Referring Provider Obstetrics & Gynecology; Visit Provider Obstetrics & Gynecology
DX: N60.12 Diffuse cystic mastopathy of left breast (principal)
CPT/HCPCS: 76642; 77062; 77066; G0279

== ENCOUNTER → 2022-08-25 | Outpatient (CLI) | payer OTHER, SELFPAY ==
[2022-08-25 12:44] LABS: Vitamin D,25 Hydroxy 35.2 ng/mL
== END | disposition home or self-care (01) ==
PROVIDERS: PCP Family Medicine; Referring Provider Nurse Practitioner Women's Health; Visit Provider Nurse Practitioner Women's Health
DX: Z13.21 Encounter for screening for nutritional disorder (principal)
CPT/HCPCS: 36415; 82306

== ENCOUNTER → 2022-09-10 | Outpatient (CLI) | payer OTHER, SELFPAY ==
--- NOTE | 2022-09-10 09:43 | BI_ITS ---
MAMMOGRAPHY - BILATERAL SCREENING REASON FOR EXAM: Female, 42 years old. Routine annual screening examination. PERTINENT HISTORY: Non-contributory. TECHNIQUE: Digital bilateral breast alvarez (3D mammographic acquisition) in the CC and MLO projections. 2-D mediolateral oblique (MLO) and craniocaudad (CC) views of both breasts were obtained. CAD: Full Field Digital Mammography with Computer Added Detection was performed. COMPARISON: Comparison is made with prior examination June 24, 2021 and July 26, 2020. FINDINGS: Breast Composition: The breasts are heterogeneously dense, which may obscure small masses. There are no dominant masses or suspicious calcifications. No other significant abnormalities are identified. There has been no significant change since the prior study. BI/SCRN MAMM (CAD)W/ALVAREZ BILAT IMPRESSION: Stable bilateral screening mammogram. Yearly follow-up mammogram recommended. (A) ASSESSMENT CATEGORY: BIRADS Category 1: Negative. A letter regarding these results will be sent to the patient by the facility within 30 days. Approximately 10% of breast cancers are not detected by mammography. A normal mammogram should not delay biopsy of a clinically suspicious abnormality. [id number] Electronically Signed: Neil Koenig MD at 10:50 EDT ,
== END | disposition home or self-care (01) ==
LOC: OPBI 09:42
PROVIDERS: PCP Family Medicine; Referring Provider Nurse Practitioner Women's Health; Visit Provider Nurse Practitioner Women's Health
DX: Z12.31 Encounter for screening mammogram for malignant neoplasm of breast (principal)
CPT/HCPCS: 77063; 77067

== ENCOUNTER → 2023-08-31 | Outpatient (CLI) | payer OTHER, SELFPAY ==
[2023-09-03 10:08] LABS: HPV APTIMA, High Risk Negative (Negative)
== END | disposition home or self-care (01) ==
LOC: LABSPEC 13:01
PROVIDERS: Nurse Practitioner Family; PCP Family Medicine; Referring Provider Nurse Practitioner Women's Health; Visit Provider Nurse Practitioner Women's Health
DX: Z12.4 Encounter for screening for malignant neoplasm of cervix (principal)
CPT/HCPCS: 87624; 88175; G0145

== ENCOUNTER → 2023-09-24 | Outpatient (CLI) | payer OTHER, SELFPAY ==
--- NOTE | 2023-09-24 09:29 | BI_ITS ---
MAMMOGRAPHY - BILATERAL SCREENING REASON FOR EXAM: Female, 43 years old. Routine annual screening examination. PERTINENT HISTORY: Non-contributory. TECHNIQUE: Digital bilateral breast alvarez (3D mammographic acquisition) in the CC and MLO projections. 2-D mediolateral oblique (MLO) and craniocaudad (CC) views of both breasts were obtained. CAD: Full Field Digital Mammography with Computer Added Detection was performed. COMPARISON: Comparison is made with prior mammogram dated September 10, 2022 and June 24, 2021. FINDINGS: Breast Composition: The breasts are heterogeneously dense, which may obscure small masses. There are no dominant masses or suspicious calcifications. No other significant abnormalities are identified. There has been no significant change since the prior study. BI/SCRN MAMM (CAD)W/ALVAREZ BILAT IMPRESSION: Stable bilateral screening mammogram. Yearly follow-up mammogram recommended. (A) ASSESSMENT CATEGORY: BIRADS Category 1: Negative. A letter regarding these results will be sent to the patient by the facility within 30 days. Approximately 10% of breast cancers are not detected by mammography. A normal mammogram should not delay biopsy of a clinically suspicious abnormality. [id number] Electronically Signed: Neil Koenig MD at 10:50 EDT ,
== END | disposition home or self-care (01) ==
LOC: OPBI 09:28
PROVIDERS: PCP Family Medicine; Visit Provider Nurse Practitioner Family
DX: Z12.31 Encounter for screening mammogram for malignant neoplasm of breast (principal)
CPT/HCPCS: 77063; 77067

== ENCOUNTER → 2024-05-26 | Outpatient (CLI) | payer OTHER, SELFPAY ==
--- NOTE | 2024-05-26 08:49 | BI_ITS ---
MAMMOGRAPHY - BILATERAL DIAGNOSTIC REASON FOR EXAM: Female, 44 years old. Tender left breast lump. PERTINENT HISTORY: Non-contributory. TECHNIQUE: Digital bilateral breast addie (3D mammographic acquisition) in the CC and MLO projections. 2-D mediolateral oblique (MLO) and craniocaudad (CC) views of both breasts were obtained. CAD: Full Field Digital Mammography with Computer Added Detection was performed. COMPARISON: Comparison is made with prior study of September 24, 2023 and September 10, 2022. FINDINGS: Breast Composition: The breasts are heterogeneously dense, which may obscure small masses. There are no dominant masses or suspicious calcifications. No other significant abnormalities are identified. There has been no significant change since the prior study. BI/DIAG MAMM W/CAD, BILAT IMPRESSION: With the patient''s history of a tender palpable lump in the retroareolar region of the left breast, correlation with ultrasound is recommended. ASSESSMENT CATEGORY: BIRADS Category 0: Incomplete. Need additional imaging evaluation. A letter regarding these results will be sent to the patient by the facility within 30 days. Approximately 10% of breast cancers are not detected by mammography. A normal mammogram should not delay biopsy of a clinically suspicious abnormality. Electronically Signed: Neil Koenig MD at 10:11 EST ,
--- NOTE | 2024-05-26 08:49 | US_ITS ---
STUDY: ULTRASOUND BREAST - LEFT REASON FOR EXAM: Female, 44 years old. Palpable lump in the left retroareolar region. TECHNIQUE: Axial and longitudinal images of the LEFT breast were performed with a high resolution ultrasound transducer. # OF IMAGES: 33 COMPARISON: Comparison is made with prior mammogram done earlier today. Comparison is also made with prior sonogram of the left breast dated June 24, 2021. FINDINGS: LEFT Breast: The retroareolar region of the left breast was examined with ultrasound. No mass lesion is seen. There is evidence of retroareolar ductal dilatation. US/Breast Limited Unilateral IMPRESSION: Retroareolar ductal dilatation. ASSESSMENT CATEGORY: BIRADS Category 2: Benign. A letter regarding these results will be sent to the patient by the facility within 30 days. Electronically Signed: Neil Koenig MD at 11:25 EST ,
== END | disposition home or self-care (01) ==
LOC: OPUS 08:49
PROVIDERS: PCP Family Medicine; Referring Provider Nurse Practitioner Women's Health; Visit Provider Nurse Practitioner Women's Health
DX: N63.42 Unspecified lump in left breast, subareolar (principal)
CPT/HCPCS: 76642; 77062; 77066; G0279